=== PATIENT | female | born 1950 | race Caucasian/White ===

== ENCOUNTER 2024-08-23 10:00 | Observation (INO) ==
--- NOTE | 2024-07-26 13:06 | PAT Medication Instructions ---
Medication Instructions Date of Service July 26, 2024 Home Medications aspirin 81 mg tablet,delayed release (Aspir-) 81 mg PO QAM chlorthalidone 25 mg tablet 25 mg PO QAM escitalopram oxalate 20 mg tablet (Lexapro) 20 mg PO QAM esomeprazole magnesium 20 mg capsule,delayed release (Nexium) 40 mg PO QAM eszopiclone 2 mg tablet (Lunesta) 2 mg PO HS levothyroxine 50 mcg tablet 50 mcg PO QAM metoprolol tartrate 25 mg tablet 25 mg PO QAM lisinopril 5 mg tablet (Zestril) 2.5 mg PO QAM Surpass For Horses 1 applic topical BID PRN camphor-menthol 0.2 %-3.5 % topical gel 1 applic topical BID PRN cholecalciferol (vitamin D3) 25 mcg (1,000 unit) capsule (Vitamin D3) 25 mcg PO DAILY escitalopram oxalate 10 mg tablet 10 mg PO QAM gabapentin 100 mg capsule 200 mg PO HS meloxicam 15 mg tablet 15 mg PO DAILY PRN polyethylene glycol 3350 17 gram/dose oral powder (Miralax) 17 g PO DAILY PRN psyllium 1 packet PO DAILY PRN ropinirole 2 mg tablet 2 mg PO HS rosuvastatin 5 mg tablet 5 mg PO QAM tamsulosin 0.4 mg capsule 0.4 mg PO QAM vitamin B12 500 mcg-folic acid 400 mcg tablet 1 tab PO DAILY ASK your surgeon for instructions meloxicam 15 mg tablet 15 mg PO DAILY PRN ASK your prescriber and surgeon aspirin 81 mg tablet,delayed release (Aspir-) 81 mg PO QAM STOP taking 24 hours before surgery Dolores For Horses 1 applic topical BID PRN camphor-menthol 0.2 %-3.5 % topical gel 1 applic topical BID PRN DO NOT take the morning of surgery chlorthalidone 25 mg tablet 25 mg PO QAM lisinopril 5 mg tablet (Zestril) 2.5 mg PO QAM cholecalciferol (vitamin D3) 25 mcg (1,000 unit) capsule (Vitamin D3) 25 mcg PO DAILY polyethylene glycol 3350 17 gram/dose oral powder (Miralax) 17 g PO DAILY PRN psyllium 1 packet PO DAILY PRN vitamin B12 500 mcg-folic acid 400 mcg tablet 1 tab PO DAILY Take morning of surgery With a small sip of water, OTHERWISE NOTHING TO EAT OR DRINK AFTER MIDNIGHT: escitalopram oxalate 20 mg tablet (Lexapro) 20 mg PO QAM esomeprazole magnesium 20 mg capsule,delayed release (Nexium) 40 mg PO QAM levothyroxine 50 mcg tablet 50 mcg PO QAM metoprolol tartrate 25 mg tablet 25 mg PO QAM escitalopram oxalate 10 mg tablet 10 mg PO QAM rosuvastatin 5 mg tablet 5 mg PO QAM tamsulosin 0.4 mg capsule 0.4 mg PO QAM Take evening before surgery eszopiclone 2 mg tablet (Lunesta) 2 mg PO HS gabapentin 100 mg capsule 200 mg PO HS ropinirole 2 mg tablet 2 mg PO HS Other Notes If you have any questions please call us at [phone] or [phone] or [phone] or [phone]
--- NOTE | 2024-08-01 15:06 | Anesthesiology Consultation ---
Date of Service August 01, 2024 Assessment & Plan (1) Encounter for pre-operative examination: - awaiting medical clearance regarding chronic dyspnea and hyponatremia at 129, optimization form to be faxed to Dr. Julissa Orr. Surgeon's office and patient made aware. Chart Review Chart Review: Pending: Refer to Additional Notes / Consult section and Patient seen in Pre Admission Testing Teaching & Discussion Pre-Anesthesia Teaching/Discussion Notes: Instructed NPO after midnight before surgery, except medications with 15 cc of water. Medication instructions provided according to the PAT guidelines. History Surgery Operation Date: 08/23/24 10:40 Proposed Procedures p Right Total Knee Arthroplasty - Andre Lopez MD Height/Weight Height: 5 ft 4 in Weight: 112 kg Allergies Allergy/AdvReac Type Severity Reaction Status Date / Time diclofenac [From Voltaren] Allergy Intermediate Rash, Verified 07/26/24 09:29 Itchiness latex Allergy Intermediate Rash Verified 07/26/24 09:29 Sulfa (Sulfonamide Allergy Intermediate Hives Verified 08/01/24 15:05 Antibiotics) amoxicillin [From Augmentin] AdvReac Intermediate Shakiness/H Verified 07/26/24 09:29 yper Antihistamines - Alkylamine AdvReac Intermediate Insomnia, Verified 07/26/24 09:29 Hyper, Gittery clavulanic acid AdvReac Intermediate Shakiness/H Verified 07/26/24 09:29 [From Augmentin] yper prednisone AdvReac Intermediate Insomnia Verified 07/26/24 09:29 Medications Home Medications Medication Instructions Recorded Confirmed Last Taken aspirin 81 mg tablet,delayed 81 mg PO QAM 04/09/19 07/26/24 05/11/20 release (Aspir-) chlorthalidone 25 mg tablet 25 mg PO QAM Fluid Retention 04/09/19 07/26/24 04/09/19 escitalopram oxalate 20 mg tablet 20 mg PO QAM 04/09/19 07/26/24 05/11/20 (Lexapro) esomeprazole magnesium 20 mg 40 mg PO QAM 04/09/19 07/26/24 05/11/20 capsule,delayed release (Nexium) eszopiclone 2 mg tablet (Lunesta) 2 mg PO HS 04/09/19 07/26/24 05/11/20 levothyroxine 50 mcg tablet 50 mcg PO QAM 04/09/19 07/26/24 05/12/20 07:30 metoprolol tartrate 25 mg tablet 25 mg PO QAM 04/09/19 07/26/24 05/12/20 07:30 lisinopril 5 mg tablet (Zestril) 2.5 mg PO QAM 04/30/20 07/26/24 05/12/20 07:30 Surpass For Horses 1 applic topical BID PRN Pain 07/26/24 07/26/24 Unknown camphor-menthol 0.2 %-3.5 % 1 applic topical BID PRN Pain 07/26/24 07/26/24 Unknown topical gel cholecalciferol (vitamin D3) 25 25 mcg PO DAILY 07/26/24 07/26/24 Unknown mcg (1,000 unit) capsule (Vitamin D3) escitalopram oxalate 10 mg tablet 10 mg PO QAM 07/26/24 07/26/24 Unknown gabapentin 100 mg capsule 200 mg PO HS 07/26/24 07/26/24 Unknown meloxicam 15 mg tablet 15 mg PO DAILY PRN Pain 07/26/24 07/26/24 Unknown polyethylene glycol 3350 17 17 g PO DAILY PRN Constipation 07/26/24 07/26/24 Unknown gram/dose oral powder (Miralax) psyllium 1 packet PO DAILY PRN Constipation 07/26/24 07/26/24 Unknown ropinirole 2 mg tablet 2 mg PO HS 07/26/24 07/26/24 Unknown rosuvastatin 5 mg tablet 5 mg PO QA 07/26/24 07/26/24 Unknown tamsulosin 0.4 mg capsule 0.4 mg PO QA 07/26/24 07/26/24 Unknown vitamin B12 500 mcg-folic acid 400 1 tab PO DAILY 07/26/24 07/26/24 Unknown mcg tablet Past Medical History Medical History Adverse effect of anesthesia Slow to wake - with one colonoscopy Anemia hx - no iron infusion/blood transufsion Colitis hx-x2-last episode more than 4 years ago- no current problems at this time Depression VALIENTE (dyspnea on exertion) chronic-denies change or worsening GERD (gastroesophageal reflux disease) controlled, stable per pt Hx of Lyme disease completed antibiotic tx Hypertension controlled, stable per pt Hypothyroidism Osteoarthritis Peptic ulcer disease in 30's PONV (postoperative nausea and vomiting) denies needing scop patch Prediabetes diet controlled Right knee DJD Sinus infection frequent Urinary leakage Patient denies h/o stroke, seizures, heart attack, heart failure, blood clots/DVTs or blood transfusions. Exercise / Class Metabolic Activity III < 4 Walking/Shop/Light housework (shortness of breath with usual activities ongoing more than 1 year-denies change or worsening; denies chest discomfort) Past Family History Family History Father Colon cancer Mother Liver cancer Past Surgical History Surgical History History of appendectomy History of back surgery x2 - for herniated disc lumbar area/balloon kyphoplasty to lumbar spine History of section x1 History of colonoscopy History of esophagogastroduodenoscopy (EGD) History of hysterectomy History of left cataract extraction History of tonsillectomy Hx of vitrectomy left Past Anesthesia History No Family Hx of Anesthesia Complications and Other (slow to wake) History of PONV History of PONV (with ) and Hx of Motion Sickness Social History Smoking Status: Never smoker Do You Dip or Chew Tobacco: No Hx Alcohol Use: Yes Alcohol type: hard liquor alcohol intake frequency: holidays/special occasions only Hx Substance Use: No substance use type: does not use Review of Systems Snoring, denies witnessed apneas. Patient denies chest pain, fever, chills, cough, wheezing, or palpitations. Physical Exam Vital Signs Vitals BP 126/65 P 58 TEMP 97.5 SP02 96% on RA RESP 18 Physical Patient resting comfortably in chair in no acute distress, alert and oriented, responding appropriately throughout visit Full cervical extension range of motion without pain TMD 3 finger breadths Mallampati Score 3 Dentition: intact, denies chipped or loose teeth, caps/crowns, implants or bridges Lungs: normal respiratory effort. Good air movement, clear throughout to auscultation, no adventitious breath sounds Cardiac: regular rate and rhythm, no murmurs noted Carotid arteries: negative bruit bilat Lab Results Anesthesia Preop Results Results Anesthesia Widget: WBC 7.53 K/ul (4.8-10.8) 08/01/24 Hgb 15.3 g/dl (12.0-16.0) 08/01/24 Hct 43.9 % (37.0-47.0) 08/01/24 Plt 174 K/uL (130-400) 08/01/24 Na 129 mmol/L (136-145) L 08/01/24 K 4.5 mmol/L (3.5-5.1) 08/01/24 Cl 93 mmol/L (98-107) L 08/01/24 CO2 31 mmol/L (21-32) 08/01/24 BUN 19 mg/dl (6-23) 08/01/24 Creat 0.72 mg/dl (0.6-1.2) 08/01/24 Glucose Level 100 mg/dl (70-99(Fasting)) H 08/01/24 PT 11.9 Seconds (9.0-12.0) 08/01/24 PTT 29 Seconds (21-31) 08/01/24 INR 1.1 (0.9-1.1) 08/01/24 Blood Type O Positive 08/01/24 Antibody Screen NEGATIVE 08/01/24 Testing Electrocardiogram Date: 08/01/24 Sinus bradycardia with 1st degree AV block, rate 54 bpm Left axis deviation RBBB Chest X-Ray Date: 08/01/24 No significant abnormality detected.
--- NOTE | 2024-08-19 08:32 | History & Physical Report ---
Date of Service August 19, 2024 Assessment & Plan (1) Right knee DJD: 74-year-old female with a several history of progressive right knee pain discomfort consistent with progressive arthritis. She failed conservative measures. She like to have her knee replaced. Plan: We are going to take her to the operating room do a right total knee replacement. The risks Mente this procedure explained and she understands. Informed consent was obtained. Taylor have to work hard to get rid of her flexion contracture. Will use aspirin for DVT prophylaxis. She is planned to be discharged home is noted home health program. (2) Morbid obesity: History of Present Illness Chief Complaint: . Persistent right knee pain and discomfort. Primary Care Provider: Julissa Orr . The patient is a 74-year-old female from [facility] who presents specifically for surgical treatment of her right knee. She has about a 5 to 6- year history of gradual progressive increasing right knee pain discomfort unresponsive to conservative care. She has been followed and treated by Dr. Harp in [place] initially and then he retired and then by his partner for quite some time. The patient has been through extensive conservative treatment clued oral medicines and injections which have become less successful over time. She now presents hoping for surgical management. Allergies Allergy/AdvReac Type Severity Reaction Status Date / Time diclofenac [From Voltaren] Allergy Intermediate Rash, Verified 07/26/24 09:29 Itchiness latex Allergy Intermediate Rash Verified 07/26/24 09:29 Sulfa (Sulfonamide Allergy Intermediate Hives Verified 08/01/24 15:05 Antibiotics) amoxicillin [From Augmentin] AdvReac Intermediate Shakiness/H Verified 07/26/24 09:29 yper Antihistamines - Alkylamine AdvReac Intermediate Insomnia, Verified 07/26/24 09:29 Hyper, Gittery clavulanic acid AdvReac Intermediate Shakiness/H Verified 07/26/24 09:29 [From Augmentin] yper prednisone AdvReac Intermediate Insomnia Verified 07/26/24 09:29 Home Medications Medication Instructions Recorded Confirmed Type aspirin 81 mg tablet,delayed 81 mg PO QAM 04/09/19 07/26/24 History release (Aspir-) chlorthalidone 25 mg tablet 25 mg PO QAM Fluid Retention 04/09/19 07/26/24 History escitalopram oxalate 20 mg tablet 20 mg PO QAM 04/09/19 07/26/24 History (Lexapro) esomeprazole magnesium 20 mg 40 mg PO QAM 04/09/19 07/26/24 History capsule,delayed release (Nexium) eszopiclone 2 mg tablet (Lunesta) 2 mg PO HS 04/09/19 07/26/24 History levothyroxine 50 mcg tablet 50 mcg PO QAM 04/09/19 07/26/24 History metoprolol tartrate 25 mg tablet 25 mg PO QAM 04/09/19 07/26/24 History lisinopril 5 mg tablet (Zestril) 2.5 mg PO QAM 04/30/20 07/26/24 History Surpass For Horses 1 applic topical BID PRN Pain 07/26/24 07/26/24 History camphor-menthol 0.2 %-3.5 % 1 applic topical BID PRN Pain 07/26/24 07/26/24 History topical gel cholecalciferol (vitamin D3) 25 25 mcg PO DAILY 07/26/24 07/26/24 History mcg (1,000 unit) capsule (Vitamin D3) escitalopram oxalate 10 mg tablet 10 mg PO QAM 07/26/24 07/26/24 History gabapentin 100 mg capsule 200 mg PO HS 07/26/24 07/26/24 History meloxicam 15 mg tablet 15 mg PO DAILY PRN Pain 07/26/24 07/26/24 History polyethylene glycol 3350 17 17 g PO DAILY PRN Constipation 07/26/24 07/26/24 History gram/dose oral powder (Miralax) psyllium 1 packet PO DAILY PRN Constipation 07/26/24 07/26/24 History ropinirole 2 mg tablet 2 mg PO HS 07/26/24 07/26/24 History rosuvastatin 5 mg tablet 5 mg PO QAM 07/26/24 07/26/24 History tamsulosin 0.4 mg capsule 0.4 mg PO QAM 07/26/24 07/26/24 History vitamin B12 500 mcg-folic acid 400 1 tab PO DAILY 07/26/24 07/26/24 History mcg tablet Past Med/Surg History Problem List Right knee DJD Morbid obesity Encounter for pre-operative examination Medical History PONV (postoperative nausea and vomiting) denies needing scop patch Adverse effect of anesthesia Slow to wake - with one colonoscopy Right knee DJD Colitis hx-x2-last episode more than 4 years ago- no current problems at this time Hx of Lyme disease completed antibiotic tx Osteoarthritis Urinary leakage Peptic ulcer disease in 30's GERD (gastroesophageal reflux disease) controlled, stable per pt Prediabetes diet controlled Hypothyroidism Anemia hx - no iron infusion/blood transufsion Sinus infection frequent Depression Hypertension controlled, stable per pt VALIENTE (dyspnea on exertion) chronic-denies change or worsening Surgical History History of left cataract extraction Hx of vitrectomy left History of section x1 History of back surgery x2 - for herniated disc lumbar area/balloon kyphoplasty to lumbar spine History of esophagogastroduodenoscopy (EGD) History of colonoscopy History of appendectomy History of hysterectomy History of tonsillectomy Family History Father Colon cancer Mother Liver cancer Social History Smoking Status: Never smoker Second Hand Exposure: No; Do You Dip or Chew Tobacco: No; Tobacco Cessation Education Requested by Patient: No Hx Alcohol Use: Yes Alcohol type: hard liquor Hx Substance Use: No Preferred Language: Khmer Communication Ability: Effective Zipper Measurer Required: No Beliefs That Will Affect Care: None Current Living Situation: Spouse Other Information That Helps Us Care for You: No Feels Safe at Home: Yes Safety Concerns: Feels Safe At This Time Assistive Devices: Glasses Review of Systems All systems reviewed & are unremarkable except as noted in HPI & below. Physical Exam . Physical examination reveals a pleasant fairly large middle-age female. Examination of the right knee reveal patient walks with the use of a cane. Walks with a bit of a flexed knee gait. Moderate soft tissue envelope. Range of motion about 10 to 15 degrees short of full extension to 115-120 Riese flexion. No particular pain with hip motion. No instability. She is neurologically intact. Constitutional WD/WN, vitals as above Respiratory normal respiratory effort, lungs clear to auscultation Cardiovascular RRR, no murmur, no edema Gastrointestinal (Abdomen) normal bowel sounds, soft, nontender, no hepatosplenomegaly Results & Data Results & Data Laboratory Results . Laboratory results reveal last sodium of 129. Rest of her electrolytes are normal. Diagnostic Findings . X-rays of the right knee reveal moderate to tricompartment DJD. She still has some joint space remaining but clearly osteophytes in all 3 compartments. MRI was also reviewed. She has tricompartment arthritis most severe in the pat ellofemoral compartment. PG Care Time/CCT Total # of Minutes Spent Total Time Spent with Patient: Total time spent is greater than 50% in coordination of care (as documented) at patient's floor/unit and/or counseling patient: Coding Level of Care Code None Diagnoses Right knee DJD M17.11 Morbid obesity E66.01
[~2024-08-23 10:00] MED LIST: BUPIVACAINE 0.5 % 5 MG/1 ML PF 10ML VIAL ONE; ROPIVACAINE 0.5% 5 MG/ML 30 ML VIAL ONE
--- NOTE | 2024-08-23 11:18 | History & Physical Bridge Note ---
Date of Service August 23, 2024 History & Physical Bridge Note I have examined the patient, reviewed the History & Physical and in the interval since the performance of the History & Physical I have noted the following changes of clinical significance: no changes noted
[2024-08-23] MEDS: ACETAMINOPHEN 500 MG TAB PO SCH ×2 (11:23→20:48)
[2024-08-23] MEDS: FAMOTIDINE 20 MG TAB PO SCH (11:23)
[2024-08-23] MEDS: LR 500ML BOLUS, THEN 15ML/HR IV SCH (11:23)
[2024-08-23] MEDS: METOCLOPRAMIDE HCL 10 MG TABLET PO SCH (11:23)
[2024-08-23] MEDS: CeleBREX 200 MG CAP PO SCH (11:24)
[2024-08-23] MEDS: LR 60ML/HR IV SCH (11:26)
[2024-08-23] MEDS ORDERED: MIDAZOLAM HCL 1 MG/ML 2ML VIAL ONE (11:47)
[2024-08-23] MEDS ORDERED: ONDANSETRON INJ 2 MG/ML 2 ML VIAL ONE (11:48)
[2024-08-23] MEDS ORDERED: PROPOFOL IV EMULSION 10 MG/ML 20 ML VIAL IV ONE ×3 (11:48→14:27)
[2024-08-23] MEDS ORDERED: PHENYLEPHRINE 100MCG/ML 5ML SYR ONE (12:08)
--- OUTSIDE RECORDS SUMMARY | 2024-08-23 12:12 | External Medical Summary | Continuity of Care Document ---
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 [phone] Problems Active Problems Provider Date Hypothyroidism Julissa Orr MD, PhD Onset: 09/29/2016 Essential hypertension Julissa Orr MD, PhD Onset: 09/29/2016 Moderate recurrent major depression Julissa dallas MD, PhD Onset: 09/29/2016 Restless legs Julissa Orr MD, PhD Onset: 01/19/2017 Body mass index 40+ - severely obese Julissa fan MD, PhD Onset: 03/25/2017 Morbid obesity Julissa Orr MD, PhD Onset: 03/25/2017 Vitamin D deficiency Julissa Orr MD, PhD On set: 08/26/2017 Hypokalemia Julissa Orr MD, PhD Onset: 12/06/2017 Type 2 diabetes mellitus Julissa Orr MD, Ph D Onset: 08/18/2018 Liver function tests outside reference range Julissa Orr MD, PhD Onset: 08/18/2018 Long QT syndrome Pawan Mckeon MD Onset: 04/29/20 Osteoarthritis of right knee joint uJlissa reynolds MD, PhD Onset: 02/20/2024 Note: Document: 02/14/24 - O rthopaedic Consult Social History Type Date Description Comments Sex Unknown Tobacco Use Reviewed: 08/15/24 Never Smoked Cigarette s Tobacco Use Reviewed: 08/15/24 Never Smoked Cigars Tobacco Use Reviewed: 08/15/24 Never Smoked A Pipe Smoking Status Reviewed: 08/15/24 Never Smoked A Pipe Smokeless Tobacco 08/15/2024 Never Used Smokeless To bacco Allergies and adverse reactions Active Allergies Criticality Reaction | Severity Comments Date Sulfa Antibiotics Unable to assess criticality hives 09/14/2016 Medications Active Medications SIG Qnty Indications Order ing Provider Date Lisinopril2.5mg Tablets take one (1) tablet by mouth every day 90tabs I10 Julissa Orr MD, PhD 03/27/2024 Dgufoyyto72ui Tablets Please take 1 tablet by mouth every day 90tabs M79.661 Lashon Woodson, 01/10/2024 Ropinirole HCL2mg Tablets take one (1) tablet by mouth every day (addition to 0.5mg tablet daily before bedtime) 30tabs G25.81 Julissa Orr MD, PhD 09/13/2023 Zdvusvziuz939oi Capsules 2 by mouth at at bedtime 180caps Julissa Orr MD, PhD 06/03/2023 Gagpiuad40np Tablets 1 tid prn Rosaura Brice 06/03/2023 Bzirvgj4nz Tablets 1 by mouth every day 90tabs Julissa Orr MD, PhD 08/06/2020 Escitalopram Zcqxiam20xg Tablets take one tablet by mouth daily (take with 10mg tablet for a total of 30mg) 90tabs Julissa Orr MD, PhD 08/31/2017 Escitalopram Lzyxkpu42ir Tablets 1 by mouth every day along with 20mg tab (total 30mg) 90tabs Julissa Orr MD, PhD 08/31/2017 Gijbrgyijgmzax43rs Tablets take 1/2 to 1 tablet by mouth once daily 90tabs Julissa Orr MD, PhD 08/26/2017 Levothyroxine Lrjhdc41hac Tablets take 1 & 1/2 tablets by mouth every day 135tabs Julissa Orr MD, PhD 05/18/2017 Metronidazole1% Gel apply to red areas under breast twice daily until healed 60gm IGNACIA Shepherd 03/25/2017 Wbshict0ay Tablets 1 tablet by mouth every night at bedtime 30tabs Julissa Orr MD, PhD 11/02/2016 Metoprolol Kpetboxy36hi Tablets 1 by mouth daily 90tabs Julissa melissa MD, PhD Voltaren1% Gel apply to affected area at night before bed 450gm Julissa Orr MD, PhD Eq Kilzvcgzlk03zb Tablets DR 1 by mouth every day 90tabs Lashon Woodson, DO Gzhhjij41KR/Scoop Powder as directed Unknown Metamucil Free & Kealvue42% Powder daily Unknown Tamsulosin HCL0.4mg Capsules 1 PO daily Aaron Pinto MD Immunizations CPT Code Status Date Vaccine Lot # [id number] Given 03/27/2024 Influenza Vac, Split, Preservative Free High Dose Age 65 & > [id number] 36371 Given 05/10/2023 Influenza Vaccine High Do se 0.5ML Age 65 & > [id number] 56340 Given 04/13/2022 Influenza Vaccine High Do se 0.5ML Age 65 & > [id number] 12108 Given 06/02/2021 Influenza Vaccine High Do se 0.5ML Age 65 & > [id number] 42205 Given 09/26/2020 Moderna Sars-Co v-2 (Cov-19) vacc,100 mcg/ 0.5 mL 12Y+EMR Doc Only [id number] 86557 Given 08/28/2020 Moderna Sars-Co v-2 (Cov-19) vacc,100 mcg/ 0.5 mL 12Y+EMR Doc Only [id number] 22781 Given 07/06/2019 Pneumococcal Vaccine/Pneu movax 23 [id number] 05011 Given 03/06/2019 Influenza Vacci ne, Inactivated, Subunit, Adjuvanted, For Intrmusc [id number] 03153 Given 05/09/2018 Influenza Vac, Split, Preservative Free High Dose Age 65 & > [id number] 80470 Given 05/09/2018 Pneumococcal Conjugate-Pr evnar 13 [id number] 96146 Given 03/25/2017 Influenza Vac, Split, Preservative Free High Dose Age 65 & > [id number] 36093 Refused 03/27/2024 depict Cov-19 Vacc (Ready To Use) EMR Doc Only [id number] Refused 05/10/2023 Shingrix 51636 Refused 04/13/2022 Moderna Sars-Co v-2 (Cov-19) vacc,100 mcg/ 0.5 mL 12Y+EMR Doc Only [id number] Refused 07/06/2019 Tdap (Tetanus, diphtheria & acel. pertussis) Adacel or Boostrix 42136 Refused 03/25/2017 Pneumococcal Vaccine/Pneu movax 23 [id number] Refused 03/25/2017 Tdap (Tetanus, diphtheria & acel. pertussis) Adacel or Boostrix 39563 Refused 03/25/2017 Pneumococcal Conjugate-Pr evnar 13 [id number] Refused 09/29/2016 Influenza Virus Vaccine, Quadrivalent, Im Use Vital Signs Date Vital Result Comment 08/15/2024 9:02am BP Systolic 118 mmHg BP Diastolic 72 mmHg Body Temperature 97.7 F Heart Rate 68 /min Respiratory Rate 20 /min Weight 247.69 lb Weight 112.357 kg Height 63.5 inches 5'3.50" BMI (Body Mass Index) 43.2 kg/m2 [place] Body Weight 115 lb 05/15/2024 10:34am BP Systolic 100 mmHg BP Diastolic 68 mmHg Body Temperature 97.4 F Heart Rate 64 /min Respiratory Rate 20 /min Weight 244.00 lb Weight 110.678 kg Height 63.5 inches 5'3.50" BMI (Body Mass Index) 42.5 kg/m2 [place] Body Weight 115 lb Results Test Acquired Date Facility Test Result H/L Range N ote Comp. Met 03/13/2024 [facility] [address] [place] [address] Glucose 116 mg/dL High 70-110 BUN 20 mg/dL 6-25 Creatinine 0.9 mg/dL 0.5-1.2 Sodium 133 mEq/L Low 135-145 Potassium 3.5 mEq/L 3.5-5.0 Chloride 94 mEq/L Low 95-107 Co-2 23 mEq/L Low 24-31 Alk Phos 55 IU/L 43-122 Alt(SGPT) 30 IU/L 10-40 Ast(Sgot) 39 IU/L 3-42 T.Bilirubin 1.2 mg/dL 0.1-1.3 Calcium 9.6 mg/dL 8.5-10.6 Tot.Protein 7.2 g/dL 5.8-8.0 Albumin 4.3 g/dL 3.0-5.2 Globulin 2.9 g/dL 2.0-3.4 GFR 65 ML/MIN/1.7 3SQM >60 Lipid 03/13/2024 [facility] [address] [place] [address] Cholesterol 110 mg/dL 0-200 1 Triglyceride 81 mg/dL 0-150 2 HDLD 36 mg/dL See Comment 3 Measured LDL 62 mg/dL 0-130 4 Calc VLDL 16.2 mg/dL See Comment 5 Chol/HDL 3.1 RATIO See Comment 6 Non-HDL 74 mg/dL See Comment 7 Hba1c 03/13/2024 [facility] [address] [place] [address] [phone] A1c 6.10 % 4.70-6.50 8 CBC W/Diff 03/13/2024 [facility] [address] [place] [address] WBC 7.0 10^3/M3 3.1-9.2 RBC 5.09 10^6/M3 3.70-5.50 HGB 16.4 GR/DL High 11.5-16.1 HCT 46.9 % 34.5-47.8 MCV 92.3 CUMICR 82.6-95.8 MCH 32.2 PICOGR 27.9-32.9 MCHC 34.9 % 32.6-35.4 RDW 13.6 % 11.4-14.6 PLT 213 10^3/M3 140-350 MPV 8.4 CUMICR 7.0-10.6 %Neut 61.0 % 40.0-75.0 %Lymph 25.9 % 17.0-45.0 %Bibb 10.3 % 1.0-11.0 %Eos 1.9 % 0.0-6.0 %Baso 0.9 % 0.0-2.0 #Neut 4.3 10^3/M3 1.5-8.0 #Lymph 1.8 10^3/M3 0.8-3.2 #Bibb 0.7 10^3/M3 0.0-0.8 #Eos 0.1 10^3/m3 0.0-0.4 #Baso 0.1 10^3/m3 0.0-0.2 Laboratory test finding 03/13/2024 [facility] [address] [facility] [address] [place], [place] [address] [phone] TSH 3.44 uIU/mL 0.50-6.00 FRT4 1.16 ng/dL 0.75-1.54 VB12 >1500 pg/mL High 230-1050 9 1 CHOLESTEROL Less than 200mg/dl Low risk 201-239 mg/dl Borderline risk Equal to or greater 240mg/dl High risk 2 TRIGLYCERIDES Less than 150mg/dl Normal 150-199mg/dl Borderline 200-499mg/dl High Greater than 500mg/dl Very High 3 HDL <40mg/dl Elevated Risk 41-59mg/dl Risk >=60mg/dl Least Risk 4 LDL <100mg/dl Optimal 100-129mg/dl Near Optimal 130-159mg/dl Borderline High 160-189mg/dl High >=190 Very High 5 VLDL Less than 30mg/dl Normal 6 CHOL/HDL <4.0 Optimal 4.0-5.0 Borderline >6.0 High Risk 7 NON-HDL 30mg/dl higher than LDL Target 8 MEAN GLUCOSE IN mg/d L/A1c% POOR CONTROL FAIR CONTROL GOOD CONTROL EXCELLENT CONTROL 360-14 210-9 180-8 120-6 330-13 150-7 90-5 300-12 270-11 240-10 9 B12 COMMENT SERUM B12 LEVELS >1500 MG/DL ARE NOT DILUTED AND REANALYZED. ELEVATED B12 LEVELS ARE NOT CONSIDERED TOXIC. Procedures Date Code Description Status 08/15/2024 79931 Venipuncture Routine Complet ed 05/15/2024 3288F Fall Risk Assessment Documen rosy Completed 05/15/2024 3078F PVRP Diastolic BP <80 mmHg C ompleted 05/15/2024 3074F PVRP Systolic BP <130 mmHg C ompleted 05/15/2024 3044F PVRP HGB-A1c <7.0% Completed 05/15/2024 1100F PT Screened Futu re Fall Risk >/=2 Falls In Past Yr/1 W/Injury Completed 03/27/2024 G0008 Influenza Admin Completed 03/27/2024 3078F PVRP Diastolic BP <80 mmHg C ompleted 03/27/2024 3074F PVRP Systolic BP <130 mmHg C ompleted 03/27/2024 3044F PVRP HGB-A1c <7.0% Completed 03/13/2024 54360 Venipuncture Routine Complet ed 11/28/2023 [id number] Mammogram Completed 12/20/2022 [id number] Colonoscopy Completed 11/27/2019 [id number] Bone Mineral Density Test Co mpleted Medical Devices Description No Information Available Encounters Type Date Location Provider Dx Diagnosis Office Visit 05/15/2024 10:30a Merlin Orr MD, PhD Z00.01 Encounter for general adult medical exam w abnormal findings M76.61 Achilles tendinitis, right leg M25.561 Pain in right knee Office Visit 03/27/2024 10:30a Merlin melissa MD, PhD F33.1 Major depressive disorder, recurrent, moderate E66.01 Morbid (severe) obes ity due to excess calories E03.9 Hypothyroidism, unsp ecified I10 Essential (primary) hypertension E55.9 Vitamin D deficiency , unspecified E11.9 Type 2 diabetes chris itus without complications G25.81 Restless legs syndro me Z23 Encounter for immuni zation Assessments Date Code Description Provider 08/15/2024 Z01.818 Encounter for ot her preprocedural examination Julissa Orr MD, PhD 05/15/2024 Z00.01 Encounter for ge neral adult medical examination with abnormal findings Julissa Orr MD, PhD 05/15/2024 M76.61 Achilles tendinitis, right l eg Julissa Orr MD, PhD 05/15/2024 M25.561 Pain in right knee Julissa rush MD, PhD 03/27/2024 F33.1 Major depressive disorder, recurrent, moderate Julissa Orr MD, PhD 03/27/2024 E66.01 Morbid (severe) obesity due to excess calories Julissa Orr MD, PhD 03/27/2024 E03.9 Hypothyroidism, unspecified Julissa Orr MD, PhD 03/27/2024 I10 Essential (primary) hyperten andres Julissa Orr MD, PhD 03/27/2024 E55.9 Vitamin D deficiency, unspec ified Julissa Orr MD, PhD 03/27/2024 E11.9 Type 2 diabetes mellitus without complications Julissa Orr MD, PhD 03/27/2024 G25.81 Restless legs syndrome Julissa Orr MD, PhD 03/27/2024 Z23 Encounter for immunization M marley Orr MD, PhD 03/13/2024 E11.9 Type 2 diabetes mellitus without complications Julissa Orr MD, PhD 03/13/2024 E11.9 Type 2 diabetes mellitus without complications Lab - [facility] 03/13/2024 E03.9 Hypothyroidism, unspecified Julissa Orr MD, PhD 03/13/2024 E03.9 Hypothyroidism, unspecified Lab - [facility] 03/13/2024 I10 Essential (primary) hyperten andres Julissa Orr MD, PhD 03/13/2024 I10 Essential (primary) hyperten andres Lab - [facility] 03/13/2024 E55.9 Vitamin D deficiency, unspec ified Julissa Orr MD, PhD 03/13/2024 E55.9 Vitamin D deficiency, unspec ified Lab - [facility] Plan of Treatment Future Appointment(s):* 09/18/2024 9:45 am - [facility] * 09/26/2024 10:30 am - Julissa Orr MD, PhD at [facility] 08/15/2024 - Julissa Orr MD, PhD* Z01.818 Encounter for other preprocedural examination* New Labs:* BMP, Scheduled: 08/15/24 Functional Status Description No Information Available Mental Status Description No Information Available Referrals Refer to Dr Reason for Referral Status Appt Michel e Andre Lopez MD Scheduled [facility] [address] [place] [address] [phone]
--- OUTSIDE RECORDS SUMMARY | 2024-08-23 12:12 | External Medical Summary | Continuity of Care Document ---
Author Name Unknown Organization [facility] Address [address], [place] [address] Phone [phone] Care Team Providers Care Canal Boat Operator Name Role Phone [facility] Care Team Information Die Cut Operator [phone] Problems Active Problems Provider Date Hypothyroidism Julissa Orr MD, PhD Onset: 09/29/2016 Essential hypertension Julissa Orr MD, PhD Onset: 09/29/2016 Moderate recurrent major depression Jluissa dallas MD, PhD Onset: 09/29/2016 Restless legs [...] Onset: 04/29/20 Osteoarthritis of right knee joint Julissa reynolds MD, PhD Onset: 02/20/2024 Note: Document: [...] 90tabs I10 Julissa Orr MD, PhD 03/27/2024 Ohqeifsqr38ki Tablets Please take 1 tablet by mouth every day 90tabs M79.661 Lashon Woodson, 01/10/2024 Ropinirole HCL2mg Tablets take one (1) tablet by mouth every day (addition to 0.5mg tablet daily before bedtime) 30tabs G25.81 Julissa Orr MD, PhD 09/13/2023 Gtrhlseuia215th Capsules 2 by mouth at at bedtime 180caps Julissa Orr MD, PhD 06/03/2023 Nsirzhfb97xa Tablets 1 tid prn Rosaura Brice 06/03/2023 Phnobtb9ym Tablets 1 by mouth every day 90tabs Julissa Orr MD, PhD 08/06/2020 Escitalopram Wyefknj08rb Tablets take one tablet by mouth daily (take with 10mg tablet for a total of 30mg) 90tabs Julissa Orr MD, PhD 08/31/2017 Escitalopram Zicbobv44jz Tablets 1 by mouth every day along with 20mg tab (total 30mg) 90tabs Julissa Orr MD, PhD 08/31/2017 Lecleveyeqzeen49hj Tablets take 1/2 to 1 tablet by mouth once daily 90tabs Julissa Orr MD, PhD 08/26/2017 Levothyroxine Ajorys86vnq Tablets take 1 & 1/2 tablets by mouth every day 135tabs Julissa Orr MD, PhD 05/18/2017 Metronidazole1% Gel apply to red areas under breast twice daily until healed 60gm IGNACIA Shepherd 03/25/2017 Aebgzqy6cw Tablets 1 tablet by mouth every night at bedtime 30tabs Julissa Orr MD, PhD 11/02/2016 Metoprolol Csbafglk86ge Tablets 1 by mouth daily 90tabs Julissa melissa MD, PhD Voltaren1% Gel apply to affected area at night before bed 450gm Julissa Orr MD, PhD Eq Dbziwqhwft37vj Tablets DR 1 by mouth every day 90tabs Lashon Woodson, DO Kvnkrld03UI/Scoop Powder as directed Unknown Metamucil Free & Buwtdbg22% Powder daily Unknown Tamsulosin HCL0.4mg Capsules 1 PO daily Aaron Pinto MD Immunizations CPT Code Status Date Vaccine Lot # [id number] Given 03/27/2024 Influenza Vac, Split, Preservative Free High Dose Age 65 & > [id number] 61464 Given 05/10/2023 Influenza Vaccine High Do se 0.5ML Age 65 & > [id number] 38681 Given 04/13/2022 Influenza Vaccine High Do se 0.5ML Age 65 & > [id number] 46445 Given 06/02/2021 Influenza Vaccine High Do se 0.5ML Age 65 & > [id number] 05631 Given 09/26/2020 Moderna Sars-Co v-2 (Cov-19) vacc,100 mcg/ 0.5 mL 12Y+EMR Doc Only [id number] 36768 Given 08/28/2020 Moderna Sars-Co v-2 (Cov-19) vacc,100 mcg/ 0.5 mL 12Y+EMR Doc Only [id number] 36291 Given 07/06/2019 Pneumococcal Vaccine/Pneu movax 23 [id number] 10665 Given 03/06/2019 Influenza Vacci ne, Inactivated, Subunit, Adjuvanted, For Intrmusc [id number] 69884 Given 05/09/2018 Influenza Vac, Split, Preservative Free High Dose Age 65 & > [id number] 97756 Given 05/09/2018 Pneumococcal Conjugate-Pr evnar 13 [id number] 94593 Given 03/25/2017 Influenza Vac, Split, Preservative Free High Dose Age 65 & > [id number] 41101 Refused 03/27/2024 Tamion Cov-19 Vacc (Ready To Use) EMR Doc Only [id number] Refused 05/10/2023 Shingrix 41641 Refused 04/13/2022 Moderna Sars-Co v-2 (Cov-19) vacc,100 mcg/ 0.5 mL 12Y+EMR Doc Only [id number] Refused 07/06/2019 Tdap (Tetanus, diphtheria & acel. pertussis) Adacel or Boostrix 91889 Refused 03/25/2017 Pneumococcal Vaccine/Pneu movax 23 53669 Refused 03/25/2017 Tdap (Tetanus, diphtheria & acel. pertussis) Adacel or Boostrix 28859 Refused 03/25/2017 Pneumococcal Conjugate-Pr evnar 13 [id number] Refused 09/29/2016 Influenza Virus Vaccine, Quadrivalent, Im Use Vital Signs Date Vital Result Comment 08/15/2024 9:02am BP Systolic 118 mmHg BP Diastolic 72 mmHg Body Temperature 97.7 F Heart Rate 68 /min Respiratory Rate 20 /min Weight 247.69 lb Weight 112.357 kg Height 63.5 inches 5'3.50" BMI (Body Mass Index) 43.2 kg/m2 [place] Body Weight 115 lb 05/15/2024 10:34am BP Systolic 100 mmHg BP Diastolic 68 mmHg Body Temperature 97.4 F Heart Rate 64 /min Respiratory Rate 20 /min Weight 244.00 lb Weight 110.678 kg Height 63.5 inches 5'3.50" BMI (Body Mass Index) 42.5 kg/m2 [place] Body Weight 115 lb Results Test Acquired Date Facility Test Result H/L Range N ote BMP 08/15/2024 [facility] [address] [place], [place] [id number] Glucose 98 mg/dL 70-110 BUN 20 mg/dL 6-25 Creatinine 0.8 mg/dL 0.5-1.2 Sodium 135 mEq/L 135-145 Potassium 3.7 mEq/L 3.5-5.0 Chloride 98 mEq/L 95-107 Co-2 26 mEq/L 24-31 Calcium 10.3 mg/dL 8.5-10.6 GFR 75 ML/MIN/1.7 3SQM >60 Comp. Met 03/13/2024 [facility] [address] [place], [place] [address] Glucose 116 mg/dL High 70-110 BUN 20 [...] GFR 65 ML/MIN/1.7 3SQM >60 Lipid 03/13/2024 [facility] [address] [place] [address] [phone] Cholesterol 110 mg/dL 0-200 1 Triglyceride 81 mg/dL 0-150 2 HDLD 36 mg/dL See Comment 3 Measured LDL 62 mg/dL 0-130 4 Calc VLDL 16.2 mg/dL See Comment 5 Chol/HDL 3.1 RATIO See Comment 6 Non-HDL 74 mg/dL See Comment 7 Hba1c 03/13/2024 [facility] [address] [place], [place] [address] [phone] A1c 6.10 % 4.70-6.50 8 CBC W/Diff 03/13/2024 [facility] [address] [place] [address] [phone] WBC 7.0 10^3/M3 3.1-9.2 RBC 5.09 10^6/M3 3.70-5.50 HGB 16.4 GR/DL High 11.5-16.1 HCT 46.9 % 34.5-47.8 MCV 92.3 CUMICR 82.6-95.8 MCH 32.2 PICOGR 27.9-32.9 MCHC 34.9 % 32.6-35.4 RDW 13.6 % 11.4-14.6 PLT 213 10^3/M3 140-350 MPV 8.4 CUMICR 7.0-10.6 %Neut 61.0 % 40.0-75.0 %Lymph 25.9 % 17.0-45.0 %[place] 10.3 % 1.0-11.0 %Eos 1.9 % 0.0-6.0 %Baso 0.9 % 0.0-2.0 #Neut 4.3 10^3/M3 1.5-8.0 #Lymph 1.8 10^3/M3 0.8-3.2 #[place] 0.7 10^3/M3 0.0-0.8 #Eos 0.1 10^3/m3 0.0-0.4 #Baso 0.1 10^3/m3 0.0-0.2 Laboratory test finding 03/13/2024 [facility] [address] [place] [address] TSH 3.44 uIU/mL 0.50-6.00 FRT4 1.16 ng/dL [...] TOXIC. Procedures Date Code Description Status 08/15/2024 01830 Venipuncture Routine Complet ed 05/15/2024 0438F Fall Risk Assessment Documen rosy Completed 05/15/2024 [...] 03/27/2024 3044F PVRP HGB-A1c <7.0% Completed 03/13/2024 87262 Venipuncture Routine Complet ed 11/28/2023 [id number] Mammogram Completed 12/20/2022 [id number] Colonoscopy Completed 11/27/2019 [id number] Bone Mineral Density Test Co mpleted Medical Devices Description No Information Available Encounters Type Date Location Provider Dx Diagnosis Office Visit 08/15/2024 9:00a Merlin Orr MD, PhD Z01.818 Encounter for other preprocedural examination Office Visit 05/15/2024 10:30a Merlin Orr MD, [...] 2 diabetes mellitus without complications Lab - [facility] 03/13/2024 E03.9 Hypothyroidism, unspecified Julissa Orr MD, PhD 03/13/2024 E03.9 Hypothyroidism, unspecified Lab - [facility] 03/13/2024 I10 Essential (primary) hyperten andres Julissa Orr MD, PhD 03/13/2024 I10 Essential (primary) hyperten andres Lab - [facility] 03/13/2024 E55.9 Vitamin D deficiency, unspec ified Julissa Orr MD, PhD 03/13/2024 E55.9 Vitamin D deficiency, unspec ified Lab - [facility] Plan of Treatment Future Appointment(s):* 09/18/2024 9:45 am - [facility] - [facility] * 09/26/2024 10:30 am - Julissa Orr MD, PhD at [facility] 08/15/2024 - Julissa Orr MD, PhD* Z01.818 Encounter for other preprocedural examination* Comments:* Medically optimized for surgery. EKG is unchanged for several years Has overall deconditioning but no VALIENTE or SOB Functional Status Description No Information Available Mental Status Description No Information Available Referrals Refer to Reason for Referral Status Appt Andre Zaldivar MD Closed [facility] [address] [place] [address] [phone]
--- OUTSIDE RECORDS SUMMARY | 2024-08-23 12:12 | External Medical Summary | Continuity of Care Document ---
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 [phone] Problems Active Problems Provider Date Hypothyroidism Julissa [...] 90tabs I10 Julissa Orr MD, PhD 03/27/2024 Ltwbfamla96xy Tablets Please take 1 tablet by mouth every day 90tabs M79.661 Lashon Woodson, 01/10/2024 Ropinirole HCL2mg Tablets take one (1) tablet by mouth every day (addition to 0.5mg tablet daily before bedtime) 30tabs G25.81 Julissa Orr MD, PhD 09/13/2023 Qeaerndepw751zg Capsules 2 by mouth at at bedtime 180caps Julissa Orr MD, PhD 06/03/2023 Raudztsz96gz Tablets 1 tid prn Rosaura Brice 06/03/2023 Eekxydz1fn Tablets 1 by mouth every day 90tabs Julissa Orr MD, PhD 08/06/2020 Escitalopram Rawhjtm72my Tablets take one tablet by mouth daily (take with 10mg tablet for a total of 30mg) 90tabs Julissa Orr MD, PhD 08/31/2017 Escitalopram Zxfmbxo60qp Tablets 1 by mouth every day along with 20mg tab (total 30mg) 90tabs Julissa Orr MD, PhD 08/31/2017 Xuvqlugrktutso69tl Tablets take 1/2 to 1 tablet by mouth once daily 90tabs Julissa Orr MD, PhD 08/26/2017 Levothyroxine Guyoqc92wkx Tablets take 1 & 1/2 tablets by mouth every day 135tabs Julissa Orr MD, PhD 05/18/2017 Metronidazole1% Gel apply to red areas under breast twice daily until healed 60gm IGNACIA Shepherd 03/25/2017 Vnavcym0tj Tablets 1 tablet by mouth every night at bedtime 30tabs Julissa Orr MD, PhD 11/02/2016 Metoprolol Fjlophnk77vz Tablets 1 by mouth daily 90tabs Julissa melissa MD, PhD Voltaren1% Gel apply to affected area at night before bed 450gm Julissa Orr MD, PhD Eq Itpwfwzams47ef Tablets DR 1 by mouth every day 90tabs Lashon Woodson, DO Wynfbnb19GJ/Scoop Powder as directed Unknown Metamucil Free & Hbqdtde72% Powder daily Unknown Tamsulosin HCL0.4mg Capsules 1 PO daily Aaron Pinot MD Immunizations CPT Code Status Date Vaccine Lot # [id number] Given 03/27/2024 Influenza Vac, Split, Preservative Free High Dose Age 65 & > [id number] Given 05/10/2023 Influenza Vaccine High Do se 0.5ML Age 65 & > [id number] 36133 Given 04/13/2022 Influenza Vaccine High Do se 0.5ML Age 65 & > [id number] 69164 Given 06/02/2021 Influenza Vaccine High Do se 0.5ML Age 65 & > [id number] 78177 Given 09/26/2020 Moderna Sars-Co v-2 (Cov-19) vacc,100 mcg/ 0.5 mL 12Y+EMR Doc Only [id number] 25926 Given 08/28/2020 Moderna Sars-Co v-2 (Cov-19) vacc,100 mcg/ 0.5 mL 12Y+EMR Doc Only [id number] 29240 Given 07/06/2019 Pneumococcal Vaccine/Pneu movax 23 [id number] 10628 Given 03/06/2019 Influenza Vacci ne, Inactivated, Subunit, Adjuvanted, For Intrmusc [id number] 91989 Given 05/09/2018 Influenza Vac, Split, Preservative Free High Dose Age 65 & > [id number] 09521 Given 05/09/2018 Pneumococcal Conjugate-Pr evnar 13 [id number] 50919 Given 03/25/2017 Influenza Vac, Split, Preservative Free High Dose Age 65 & > [id number] Refused 03/27/2024 Essential Viewing Cov-19 Vacc (Ready To Use) EMR Doc Only [id number] Refused 05/10/2023 Shingrix 74772 Refused 04/13/2022 Moderna Sars-Co v-2 (Cov-19) vacc,100 mcg/ 0.5 mL 12Y+EMR Doc Only [id number] Refused 07/06/2019 Tdap (Tetanus, diphtheria & acel. pertussis) Adacel or Boostrix 37433 Refused 03/25/2017 Pneumococcal Vaccine/Pneu movax 23 05707 Refused 03/25/2017 Tdap (Tetanus, diphtheria & acel. pertussis) Adacel or Boostrix 31126 Refused 03/25/2017 Pneumococcal Conjugate-Pr evnar 13 24898 Refused 09/29/2016 Influenza Virus Vaccine, Quadrivalent, Im Use Vital Signs Date Vital Result Comment 08/15/2024 9:02am BP Systolic 118 mmHg BP Diastolic 72 mmHg Body Temperature 97.7 F Heart Rate 68 /min Respiratory Rate 20 /min Weight 247.69 lb Weight 112.357 kg Height 63.5 inches 5'3.50" BMI (Body Mass Index) 43.2 kg/m2 [place] Body Weight 115 lb 05/15/2024 10:34am BP Systolic 100 mmHg BP Diastolic 68 mmHg Body Temperature 97.4 F Heart Rate 64 /min Respiratory Rate 20 /min Weight 244.00 lb Weight 110.678 kg Height 63.5 inches 5'3.50" BMI (Body Mass Index) 42.5 kg/m2 [place] Body Weight 115 lb Results Test Acquired Date Facility Test Result H/L Range N ote Comp. Met 03/13/2024 [facility]. [address] [place] [address] [phone] Glucose 116 mg/dL High 70-110 BUN 20 [...] GFR 65 ML/MIN/1.7 3SQM >60 Lipid 03/13/2024 [facility]. [address] [place] [address] [phone] Cholesterol 110 mg/dL 0-200 1 Triglyceride 81 mg/dL 0-150 2 HDLD 36 mg/dL See Comment 3 Measured LDL 62 mg/dL 0-130 4 Calc VLDL 16.2 mg/dL See Comment 5 Chol/HDL 3.1 RATIO See Comment 6 Non-HDL 74 mg/dL See Comment 7 Hba1c 03/13/2024 [facility]. [address] [place] [address] A1c 6.10 % 4.70-6.50 8 CBC W/Diff 03/13/2024 [facility]. [address] [place] [address] [phone] WBC 7.0 10^3/M3 3.1-9.2 RBC 5.09 10^6/M3 3.70-5.50 HGB 16.4 GR/DL High 11.5-16.1 HCT 46.9 % 34.5-47.8 MCV 92.3 CUMICR 82.6-95.8 MCH 32.2 PICOGR 27.9-32.9 MCHC 34.9 % 32.6-35.4 RDW 13.6 % 11.4-14.6 PLT 213 10^3/M3 140-350 MPV 8.4 CUMICR 7.0-10.6 %Neut 61.0 % 40.0-75.0 %Lymph 25.9 % 17.0-45.0 %[facility] 10.3 % 1.0-11.0 %Eos 1.9 % 0.0-6.0 %Baso 0.9 % 0.0-2.0 #Neut 4.3 10^3/M3 1.5-8.0 #Lymph 1.8 10^3/M3 0.8-3.2 #[facility] 0.7 10^3/M3 0.0-0.8 #Eos 0.1 10^3/m3 0.0-0.4 #[place] 0.1 10^3/m3 0.0-0.2 Laboratory test finding 03/13/2024 [facility]. [address] [place], [place] [id number] TSH 3.44 uIU/mL 0.50-6.00 FRT4 1.16 ng/dL [...] TOXIC. Procedures Date Code Description Status 08/15/2024 61092 Venipuncture Routine Complet ed 05/15/2024 3288F Fall [...] 03/27/2024 3044F PVRP HGB-A1c <7.0% Completed 03/13/2024 78817 Venipuncture Routine Complet ed 11/28/2023 [id number] Mammogram Completed 12/20/2022 [id number] Colonoscopy Completed 11/27/2019 [id number] Bone Mineral Density Test Co mpleted Medical [...] 2 diabetes mellitus without complications Lab - [place] 03/13/2024 E03.9 Hypothyroidism, unspecified Julissa Orr MD, PhD 03/13/2024 E03.9 Hypothyroidism, unspecified Lab - [place] 03/13/2024 I10 Essential (primary) hyperten andres Julissa Orr MD, PhD 03/13/2024 I10 Essential (primary) hyperten andres Lab - [place] 03/13/2024 E55.9 Vitamin D deficiency, unspec ified Julissa Orr MD, PhD 03/13/2024 E55.9 Vitamin D deficiency, unspec ified Lab - [place] Plan of Treatment Future Appointment(s):* 09/18/2024 9:45 am - [facility] [place] [facility] [place] * 09/26/2024 10:30 am - Julissa Orr MD, PhD at [place] 08/15/2024 - Julissa Orr MD, PhD* Z01.818 Encounter for other preprocedural examination* New Labs:* BMP, Scheduled: 08/15/24 Functional Status Description No Information Available Mental Status Description No Information Available Referrals Refer to Dr Reason for Referral Status Appt Michel e Andre Lopez MD Scheduled [facility] [address] [place] [address] [phone]
--- OUTSIDE RECORDS SUMMARY | 2024-08-23 12:12 | External Medical Summary | Continuity of Care Document ---
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 [phone] Problems Active Problems Provider Date Hypothyroidism Julissa [...] QT syndrome Pawan Mckeon MD Onset: 04/29/20 20 Osteoarthritis of right knee joint Julissa reynolds [...] 90tabs I10 Julissa Orr MD, PhD 03/27/2024 Tmsezmeqx81jp Tablets Please take 1 tablet by mouth every day 90tabs M79.661 Lashon Woodson, 01/10/2024 Ropinirole HCL2mg Tablets take one (1) tablet by mouth every day (addition to 0.5mg tablet daily before bedtime) 30tabs G25.81 Julissa Orr MD, PhD 09/13/2023 Wvregwcykt616gx Capsules 2 by mouth at at bedtime 180caps Julissa Orr MD, PhD 06/03/2023 Fxvrgyui45lq Tablets 1 tid prn Rosaura Brice 06/03/2023 Sffditg4wm Tablets 1 by mouth every day 90tabs Julissa Orr MD, PhD 08/06/2020 Escitalopram Qgnkjtc62yd Tablets take one tablet by mouth daily (take with 10mg tablet for a total of 30mg) 90tabs Julissa Orr MD, PhD 08/31/2017 Escitalopram Xwrunze58hh Tablets 1 by mouth every day along with 20mg tab (total 30mg) 90tabs Julissa Orr MD, PhD 08/31/2017 Jfnmrulffiekof38ey Tablets take 1/2 to 1 tablet by mouth once daily 90tabs Julissa Orr MD, PhD 08/26/2017 Levothyroxine Hbkooq32bbj Tablets take 1 & 1/2 tablets by mouth every day 135tabs Julissa Orr MD, PhD 05/18/2017 Metronidazole1% Gel apply to red areas under breast twice daily until healed 60gm IGNACIA Shepherd 03/25/2017 Fotylah0dh Tablets 1 tablet by mouth every night at bedtime 30tabs Julissa Orr MD, PhD 11/02/2016 Metoprolol Dhminaic89lh Tablets 1 by mouth daily 90tabs Julissa melissa MD, PhD Voltaren1% Gel apply to affected area at night before bed 450gm Julissa Orr MD, PhD Eq Ctxsmaonzf90rr Tablets DR 1 by mouth every day 90tabs Lashon Woodson, DO Gutfsph11OH/Scoop Powder as directed Unknown Metamucil Free & Wywbhln63% Powder daily Unknown Tamsulosin HCL0.4mg Capsules 1 PO daily Aaron Pinto MD Immunizations CPT Code Status Date Vaccine Lot # [id number] Given 03/27/2024 Influenza Vac, Split, Preservative Free High Dose Age 65 & > [id number] 61048 Given 05/10/2023 Influenza Vaccine High Do se 0.5ML Age 65 & > [id number] 62813 Given 04/13/2022 Influenza Vaccine High Do se 0.5ML Age 65 & > [id number] 49455 Given 06/02/2021 Influenza Vaccine High Do se 0.5ML Age 65 & > [id number] 55156 Given 09/26/2020 Moderna Sars-Co v-2 (Cov-19) vacc,100 mcg/ 0.5 mL 12Y+EMR Doc Only [id number] 56108 Given 08/28/2020 Moderna Sars-Co v-2 (Cov-19) vacc,100 mcg/ 0.5 mL 12Y+EMR Doc Only [id number] 50018 Given 07/06/2019 Pneumococcal Vaccine/Pneu movax 23 [id number] 53092 Given 03/06/2019 Influenza Vacci ne, Inactivated, Subunit, Adjuvanted, For Intrmusc [id number] 28518 Given 05/09/2018 Influenza Vac, Split, Preservative Free High Dose Age 65 & > [id number] 70285 Given 05/09/2018 Pneumococcal Conjugate-Pr evnar 13 [id number] 91951 Given 03/25/2017 Influenza Vac, Split, Preservative Free High Dose Age 65 & > [id number] 52153 Refused 03/27/2024 SnapUp Cov-19 Vacc (Ready To Use) EMR Doc Only 31703 Refused 05/10/2023 Shingrix 87475 Refused 04/13/2022 Moderna Sars-Co v-2 (Cov-19) vacc,100 mcg/ 0.5 mL 12Y+EMR Doc Only 70460 Refused 07/06/2019 Tdap (Tetanus, diphtheria & acel. pertussis) Adacel or Boostrix 60953 Refused 03/25/2017 Pneumococcal Vaccine/Pneu movax 23 15512 Refused 03/25/2017 Tdap (Tetanus, diphtheria & acel. pertussis) Adacel or Boostrix 41920 Refused 03/25/2017 Pneumococcal Conjugate-Pr evnar 13 53331 Refused 09/29/2016 Influenza Virus Vaccine, Quadrivalent, Im Use Vital Signs Date Vital Result Comment 08/15/2024 9:02am BP Systolic 118 mmHg BP Diastolic 72 mmHg Body Temperature 97.7 F Heart Rate 68 /min Respiratory Rate 20 /min Weight 247.69 lb Weight 112.357 kg Height 63.5 inches 5'3.50" BMI (Body Mass Index) 43.2 kg/m2 [place] Body Weight 115 lb 05/15/2024 10:34am BP Systolic 100 mmHg BP Diastolic 68 mmHg Body Temperature 97.4 F Heart Rate 64 /min Respiratory Rate 20 /min Weight 244.00 lb Weight 110.678 kg Height 63.5 inches 5'3.50" BMI (Body Mass Index) 42.5 kg/m2 [place] Body Weight 115 lb Results Test Acquired Date Facility Test Result H/L Range N ote BMP 08/15/2024 [facility]. 1 [place], [place] [id number] [phone] Glucose 98 mg/dL 70-110 BUN 20 mg/dL 6-25 Creatinine 0.8 mg/dL 0.5-1.2 Sodium 135 mEq/L 135-145 Potassium 3.7 mEq/L 3.5-5.0 Chloride 98 mEq/L 95-107 Co-2 26 mEq/L 24-31 Calcium 10.3 mg/dL 8.5-10.6 GFR 75 ML/MIN/1.7 3SQM >60 Comp. Met 03/13/2024 [facility]. 1 [place], [place] [address] [phone] Glucose 116 mg/dL High 70-110 BUN [...] GFR 65 ML/MIN/1.7 3SQM >60 Lipid 03/13/2024 [facility]. 1 [place] [address] Cholesterol 110 mg/dL 0-200 1 Triglyceride 81 mg/dL 0-150 2 HDLD 36 mg/dL See Comment 3 Measured LDL 62 mg/dL 0-130 4 Calc VLDL 16.2 mg/dL See Comment 5 Chol/HDL 3.1 RATIO See Comment 6 Non-HDL 74 mg/dL See Comment 7 Hba1c 03/13/2024 [facility]. 1 [place], [place] [address] A1c 6.10 % 4.70-6.50 8 CBC W/Diff 03/13/2024 [facility]. [address] [place] [address] WBC 7.0 10^3/M3 3.1-9.2 RBC 5.09 10^6/M3 3.70-5.50 HGB 16.4 GR/DL High 11.5-16.1 HCT 46.9 % 34.5-47.8 MCV 92.3 CUMICR 82.6-95.8 MCH 32.2 PICOGR 27.9-32.9 MCHC 34.9 % 32.6-35.4 RDW 13.6 % 11.4-14.6 PLT 213 10^3/M3 140-350 MPV 8.4 CUMICR 7.0-10.6 %Neut 61.0 % 40.0-75.0 %Lymph 25.9 % 17.0-45.0 %[place] 10.3 % 1.0-11.0 %Eos 1.9 % 0.0-6.0 %Baso 0.9 % 0.0-2.0 #Neut 4.3 10^3/M3 1.5-8.0 #Lymph 1.8 10^3/M3 0.8-3.2 #[place] 0.7 10^3/M3 0.0-0.8 #Eos 0.1 10^3/m3 0.0-0.4 #Baso 0.1 10^3/m3 0.0-0.2 Laboratory test finding 03/13/2024 [facility]. [address] [place] [address] TSH 3.44 uIU/mL 0.50-6.00 FRT4 1.16 ng/dL [...] TOXIC. Procedures Date Code Description Status 08/15/2024 81258 Venipuncture Routine Complet ed 05/15/2024 4498F Fall Risk Assessment Documen rosy Completed 05/15/2024 [...] 03/27/2024 3044F PVRP HGB-A1c <7.0% Completed 03/13/2024 83184 Venipuncture Routine Complet ed 11/28/2023 [id number] Mammogram Completed 12/20/2022 [id number] Colonoscopy Completed 11/27/2019 [id number] Bone Mineral Density Test Co mpleted Medical [...] Orr MD, PhD 03/27/2024 Z23 Encounter for favio Orr MD, PhD 03/13/2024 E11.9 Type 2 diabetes mellitus without complications Julissa Orr MD, PhD 03/13/2024 E11.9 Type 2 diabetes mellitus without complications Lab - [place] 03/13/2024 E03.9 Hypothyroidism, unspecified Julissa Orr MD, PhD 03/13/2024 E03.9 Hypothyroidism, unspecified Lab - [place] 03/13/2024 I10 Essential (primary) hyperten andres Julissa Orr MD, PhD 03/13/2024 I10 Essential (primary) hyperten andres Lab - [place] 03/13/2024 E55.9 Vitamin D deficiency, unspec ified Julissa Orr MD, PhD 03/13/2024 E55.9 Vitamin D deficiency, unspec ified Lab - [place] Plan of Treatment Future Appointment(s):* 09/18/2024 9:45 am - Lab - [place] [facility] [place] * 09/26/2024 10:30 am - Julissa Orr MD, PhD at [place] 08/15/2024 - Julissa Orr MD, PhD* Z01.818 Encounter for other preprocedural examination Functional Status Description No Information Available Mental Status Description No Information Available Referrals Refer to Reason for Referral Status Appt Michel e Andre Lopez MD Scheduled [facility] [address] [place] [address] [phone]
--- OUTSIDE RECORDS SUMMARY | 2024-08-23 12:12 | External Medical Summary | Continuity of Care Document ---
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 [phone] Problems Active Problems Provider Date Hypothyroidism Julissa [...] 90tabs I10 Julissa Orr MD, PhD 03/27/2024 Uiqffgdck18qk Tablets Please take 1 tablet by mouth every day 90tabs M79.661 Lashon Woodson, 01/10/2024 Ropinirole HCL2mg Tablets take one (1) tablet by mouth every day (addition to 0.5mg tablet daily before bedtime) 30tabs G25.81 Julissa Orr MD, PhD 09/13/2023 Kgtekdhgko851jz Capsules 2 by mouth at at bedtime 180caps Julissa Orr MD, PhD 06/03/2023 Lurepaam85pv Tablets 1 tid prn Rosaura Brice 06/03/2023 Kgobutc8rb Tablets 1 by mouth every day 90tabs Julissa Orr MD, PhD 08/06/2020 Escitalopram Kjnqwmz28in Tablets take one tablet by mouth daily (take with 10mg tablet for a total of 30mg) 90tabs Julissa Orr MD, PhD 08/31/2017 Escitalopram Qnmlcaz06am Tablets 1 by mouth every day along with 20mg tab (total 30mg) 90tabs Julissa Orr MD, PhD 08/31/2017 Fhcvubfwrsowfw61ha Tablets take 1/2 to 1 tablet by mouth once daily 90tabs Julissa Orr MD, PhD 08/26/2017 Levothyroxine Puovco22mqj Tablets take 1 & 1/2 tablets by mouth every day 135tabs Julissa Orr MD, PhD 05/18/2017 Metronidazole1% Gel apply to red areas under breast twice daily until healed 60gm IGNACIA Shepherd 03/25/2017 Mzzyfqr1ae Tablets 1 tablet by mouth every night at bedtime 30tabs Julissa Orr MD, PhD 11/02/2016 Metoprolol Vmbbtwat98eb Tablets 1 by mouth daily 90tabs Julissa melissa MD, PhD Voltaren1% Gel apply to affected area at night before bed 450gm Julissa Orr MD, PhD Eq Rqbjpfvmjr95sd Tablets DR 1 by mouth every day 90tabs Lashon Woodson, DO Crswcpo65UM/Scoop Powder as directed Unknown Metamucil Free & Gxahbtr30% Powder daily Unknown Tamsulosin HCL0.4mg Capsules 1 PO daily Aaron Pinto MD Immunizations CPT Code Status Date Vaccine Lot # [id number] Given 03/27/2024 Influenza Vac, Split, Preservative Free High Dose Age 65 & > [id number] 29322 Given 05/10/2023 Influenza Vaccine High Do se 0.5ML Age 65 & > [id number] 68879 Given 04/13/2022 Influenza Vaccine High Do se 0.5ML Age 65 & > [id number] 98490 Given 06/02/2021 Influenza Vaccine High Do se 0.5ML Age 65 & > [id number] 78789 Given 09/26/2020 Moderna Sars-Co v-2 (Cov-19) vacc,100 mcg/ 0.5 mL 12Y+EMR Doc Only [id number] 55655 Given 08/28/2020 Moderna Sars-Co v-2 (Cov-19) vacc,100 mcg/ 0.5 mL 12Y+EMR Doc Only [id number] 15105 Given 07/06/2019 Pneumococcal Vaccine/Pneu movax 23 [id number] 36234 Given 03/06/2019 Influenza Vacci ne, Inactivated, Subunit, Adjuvanted, For Intrmusc [id number] 53798 Given 05/09/2018 Influenza Vac, Split, Preservative Free High Dose Age 65 & > [id number] 39972 Given 05/09/2018 Pneumococcal Conjugate-Pr evnar 13 [id number] 13921 Given 03/25/2017 Influenza Vac, Split, Preservative Free High Dose Age 65 & > [id number] 32417 Refused 03/27/2024 ExpoPromoter Cov-19 Vacc (Ready To Use) EMR Doc Only [id number] Refused 05/10/2023 Shingrix 53737 Refused 04/13/2022 Moderna Sars-Co v-2 (Cov-19) vacc,100 mcg/ 0.5 mL 12Y+EMR Doc Only [id number] Refused 07/06/2019 Tdap (Tetanus, diphtheria & acel. pertussis) Adacel or Boostrix 33268 Refused 03/25/2017 Pneumococcal Vaccine/Pneu movax 23 [id number] Refused 03/25/2017 Tdap (Tetanus, diphtheria & acel. pertussis) Adacel or Boostrix 66381 Refused 03/25/2017 Pneumococcal Conjugate-Pr evnar 13 14642 Refused 09/29/2016 Influenza Virus Vaccine, Quadrivalent, Im Use Vital Signs Date Vital Result Comment 08/15/2024 9:02am BP Systolic 118 mmHg BP Diastolic 72 mmHg Body Temperature 97.7 F Heart Rate 68 /min Respiratory Rate 20 /min Weight 247.69 lb Weight 112.357 kg Height 63.5 inches 5'3.50" BMI (Body Mass Index) 43.2 kg/m2 [place] Body Weight 115 lb 05/15/2024 10:34am BP Systolic 100 mmHg BP Diastolic 68 mmHg Body Temperature 97.4 F Heart Rate 64 /min Respiratory Rate 20 /min Weight 244.00 lb Weight 110.678 kg Height 63.5 inches 5'3.50" BMI (Body Mass Index) 42.5 kg/m2 [place] Body Weight 115 lb Results Test Acquired Date Facility Test Result H/L Range N ote Comp. Met 03/13/2024 [facility]. [address] [place] [address] [phone] Glucose 116 mg/dL High 70-110 BUN [...] GFR 65 ML/MIN/1.7 3SQM >60 Lipid 03/13/2024 [facility]. [address] [place] [address] [phone] Cholesterol 110 mg/dL 0-200 1 Triglyceride 81 mg/dL 0-150 2 HDLD 36 mg/dL See Comment 3 Measured LDL 62 mg/dL 0-130 4 Calc VLDL 16.2 mg/dL See Comment 5 Chol/HDL 3.1 RATIO See Comment 6 Non-HDL 74 mg/dL See Comment 7 Hba1c 03/13/2024 [facility]. [address] [place] [address] A1c 6.10 % 4.70-6.50 8 CBC W/Diff 03/13/2024 [facility]. [address] [place] [address] [phone] WBC 7.0 10^3/M3 3.1-9.2 RBC 5.09 10^6/M3 3.70-5.50 HGB 16.4 GR/DL High 11.5-16.1 HCT 46.9 % 34.5-47.8 MCV 92.3 CUMICR 82.6-95.8 MCH 32.2 PICOGR 27.9-32.9 MCHC 34.9 % 32.6-35.4 RDW 13.6 % 11.4-14.6 PLT 213 10^3/M3 140-350 MPV 8.4 CUMICR 7.0-10.6 %Neut 61.0 % 40.0-75.0 %Lymph 25.9 % 17.0-45.0 %[place] 10.3 % 1.0-11.0 %Eos 1.9 % 0.0-6.0 %Baso 0.9 % 0.0-2.0 #Neut 4.3 10^3/M3 1.5-8.0 #Lymph 1.8 10^3/M3 0.8-3.2 #[place] 0.7 10^3/M3 0.0-0.8 #Eos 0.1 10^3/m3 0.0-0.4 #Baso 0.1 10^3/m3 0.0-0.2 Laboratory test finding 03/13/2024 [facility]. [address] [place], [place] [address] [phone] TSH 3.44 uIU/mL 0.50-6.00 FRT4 1.16 [...] TOXIC. Procedures Date Code Description Status 08/15/2024 64891 Venipuncture Routine Complet ed 05/15/2024 3288F Fall [...] 03/27/2024 3044F PVRP HGB-A1c <7.0% Completed 03/13/2024 70785 Venipuncture Routine Complet ed 11/28/2023 49694489 Mammogram Completed 12/20/2022 [id number] Colonoscopy Completed 11/27/2019 [id number] Bone Mineral Density Test Co mpleted Medical [...] 2 diabetes mellitus without complications Lab - [place] 03/13/2024 E03.9 Hypothyroidism, unspecified Julissa Orr MD, PhD 03/13/2024 E03.9 Hypothyroidism, unspecified Lab - [place] 03/13/2024 I10 Essential (primary) hyperten andres Julissa Orr MD, PhD 03/13/2024 I10 Essential (primary) hyperten andres Lab - [place] 03/13/2024 E55.9 Vitamin D deficiency, unspec ified Julissa Orr MD, PhD 03/13/2024 E55.9 Vitamin D deficiency, unspec ified Lab - [place] Plan of Treatment Future Appointment(s):* 09/18/2024 9:45 am - [facility] - [place] [facility] [place] * 09/26/2024 10:30 am - Julissa Orr MD, PhD at [place] 08/15/2024 - Julissa Orr MD, PhD* Z01.818 Encounter for other preprocedural examination* New Labs:* BMP, Scheduled: 08/15/24 Functional Status Description No Information Available Mental Status Description No Information Available Referrals Refer to Dr Reason for Referral Status Appt Michel e Andre Lopez MD Scheduled [facility] [address] [place] [address] [phone]
--- OUTSIDE RECORDS SUMMARY | 2024-08-23 12:12 | External Medical Summary ---
Author Name Unknown Address Unknown Organization [facility] [address] [place] [address] Laboratory Report Ordering Provider Test Date Status LEOBARDO KENNEDY 08/15/2024 10:26 Final Observation Date Value Abnormality Reference (Units ) Status Glucose 08/15/2024 15:58 98 70-110 (MG/DL ) Final BUN 08/15/2024 15:58 20 6-25 (MG/DL) Final Creatinine 08/15/2024 15:58 0.8 0.5-1.2 (MG/ DL) Final Sodium 08/15/2024 15:58 135 135-145 (MEQ/ L) Final Potassium 08/15/2024 15:58 3.7 3.5-5.0 (MEQ/ L) Final Cl 08/15/2024 15:58 98 95-107 (MEQ/L ) Final CO2 08/15/2024 15:58 26 24-31 (MEQ/L) Final Calcium 08/15/2024 15:58 10.3 8.5-10.6 (MG/ DL) Final GFR (estimated) 08/15/2024 15:58 75 >60 (ML /MIN/1.73 SQM) Final Performing Location [facility] [address] [place] [id number]
--- OUTSIDE RECORDS SUMMARY | 2024-08-23 12:12 | External Medical Summary | Summary of Care ---
Author Name Unknown Organization [facility] Address [address] [place] [address] Phone [phone] Care Team Providers Care Insole Rounder Name Role Phone Julissa Orr MD Primary Care Provider + Encounter Details Date Type Department Care Team (Late st Contact Info) Description 08/15/2024 Orders Only Unspecified Department [facility] [address] [facility] [address] Allergies Active Allergy Reactions Criticality Noted Date Comments Antihistamines, Diphenhydramine-Type 07/06/2018 "can not take anything with any antihistamine in it' Amoxicillin-Pot Clavulanate Other (Please comment) 02/22/2019 "feeling of crawling things under skin" Celecoxib 02/19/2010 Liver enzyme abnormalities Diclofenac 07/26/2023 Food (See Comments) 04/24/2020 Scallops Ragweed Other (Please comment) 04/09/2021 Sinus issuses Sulfa Antibiotics Hives 04/23/2020 documented as of this encounter (statuses as of 08/16/2024) Medications Vitamin D, Ergocalciferol, 89804 units Capsule Take 1 Capsule by mouth once a week. 7 Active Eszopiclone 2 MG Tablet Take 1 Tablet by mouth at bedtime. 7 Active Calcium Carbonate 600 MG Oral Tablet Take 2 Tablets by mouth in the morning. Active escitalopram (LEXAPRO) 10 MG Tablet Take 1 Tablet by mouth in the morning. Active chlorthalidone (HYGROTON) 25 MG Tablet Take 1 Tablet by mouth as needed. Active escitalopram (LEXAPRO) 20 MG TabletIndication s:total of 30mg Take 1 Tablet by mouth in the morning. Active Ferrous Sulfate (IRON) 325 (65 Fe) MG TABS Take 1 Tablet by mouth every other day. Active Diclofenac Sodium 1 % Transdermal Gel Place 1 g topically on the skin as needed. Apply to knees as needed and right shoulder Active levothyroxine (LEVOXYL) 50 MCG Tablet Take 1.5 Tablets by mouth in the morning. 9 Active metoprolol tartrate (LOPRESSOR) 25 MG Tablet Take 1 Tablet by mouth in the morning. 0 Active lisinopril (PRINIVIL) 5 MG Tablet 0 Active Rosuvastatin Calcium 5 MG Oral Tablet Take 1 Tablet by mouth in the morning. Active Metamucil 28.3 % Oral Powder (Psyllium) Take by mouth. Acti ve B-12 1000 MCG Oral Capsule Take 1 Capsule by mouth in the morning. Active Polyethylene Glycol 3350 17 GM/SCOOP Oral Powder (Miralax) Take 17 g by mouth as needed. Active metroNIDAZOLE 1 % External Gel Apply topically to affected area daily. Apply to as needed under abd Active Gabapentin 100 MG Oral Capsule (Neurontin)Indic ations:Lumbar radicular pain,Chronic bilateral low back pain with right-sided sciatica,Lumbar post-laminectomy syndrome Take 2 Capsules by mouth in the morning and 2 Capsules at noon and 2 Capsules before bedtime. 180 Capsule 3 4 Active Baclofen 10 MG Oral Tablet (Lioresal)Indica tions:Lumbar radicular pain,Chronic bilateral low back pain with right-sided sciatica,Lumbar post-laminectomy syndrome Take 1 Tablet by mouth 3 times a day as needed for Muscle spasms. 90 Tablet 2 4 Active rOPINIRole HCl 2 MG Oral Tablet (Requip) Take 1 Tablet by mouth at bedtime. 4 Active Vitamin D3 25 MCG (1000 UT) Oral Capsule Take 1 Capsule by mouth in the morning. Active Esomeprazole Magnesium 20 MG Oral Capsule Delayed Release Take 1 Capsule by mouth daily before breakfast. Active Meloxicam 15 MG Oral Tablet (Mobic) Take 1 Tablet by mouth in the morning. 4 Active Tamsulosin HCl 0.4 MG Oral Capsule (Flomax) Take 1 Capsule by mouth in the morning. 90 Capsule 3 5 Active Hospital, Clinic, or Other Facility Administered Medication Ordered Dose Route Frequency Start Date End Date Status Aflibercept (Eylea) intraviteal prefilled syringe 2 mgIndications:Branch retinal vein occlusion with macular edema of right eye 2 mg IZ PRN 07/04/2024 6 Active ROPivacaine (Naropin) inj 1.5 mgIndications:Branch retinal vein occlusion with macular edema of right eye 1.5 mg IJ PRN 07/04/2024 6 Active documented as of this encounter (statuses as of 08/16/2024) Active Problems Problem Noted Date Diagnosed Date Slow urinary stream 03/23/2024 Urge incontinence 03/23/2024 Constipation 03/23/2024 QT prolongation 04/23/2020 Unstable angina 10/25/2017 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 documented as of this encounter (statuses as of 08/16/2024) Resolved Problems Problem Noted Date Diagnosed Date Resolved Date Colitis, acute 04/23/2020 04/26/2020 NONA (acute kidney injury) 04/23/2020 Volume depletion 04/23/2020 04/26/2020 Bloody diarrhea 04/23/2020 04/26/2020 Nausea, vomiting and diarrhea 04/23/2020 04/26/2020 documented as of this encounter (statuses as of 08/16/2024) Immunizations Name Administration Dates Next Due Seasonal Influenza, Trivalen t, Adjuvanted, 65+ YRS, PF, (Fluad) 03/06/2019 documented as of this encounter Social History Tobacco Use Types Packs/Day Years Used Date Smoking Tobacco: Never Smokeless Tobacco: Never Alcohol Use Standard Drinks/Week Comments Yes 0 (1 standard drink = 0.6 oz pur e alcohol) very rarely Comments No Sex and Gender Information Value Date Recorded Sex Assigned at Not on file Legal Sex Female 5:50 AM EST Gender Identity Not on file Sexual Orientation Not on file 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 Answer Date of Assessment Author No 04/23/2020 10:08 PM EDT Vanessa Nuñez RN * Are you blind or do you have serious difficulty seeing, even when wearing glasses? Answer Date of Assessment Author No 04/23/2020 10:08 PM EDT Vanessa Nuñez RN * Do you have serious difficulty walking or climbing stairs? (5 years old or older) Answer Date of Assessment Author No 04/23/2020 10:08 PM EDT Vanessa Nuñez RN * Do you have difficulty dressing or bathing? (5 years old or older) Answer Date of Assessment Author No 04/23/2020 10:08 PM EDT Vanessa Nuñez RN * Because of a physical, mental, or emotional condition, do you have difficulty doing errands alone such as visiting a doctors office or shopping? (15 years old or older) Answer Date of Assessment Author No 04/23/2020 10:08 PM EDT Vanessa Nuñez RN documented as of this encounter Mental Status * Because of a physical, mental, or emotional condition, do you have serious difficulty concentrating, remembering, or making decisions? (5 years old or older) Answer Entry Date Author No 04/23/2020 10:08 PM EDT Vanessa Nuñez RN documented in this encounter Plan of Treatment Upcoming Encounters Date Type Department Care Team (Late st Contact Info) Description 09/13/2024 2:15 PM EDT Office Visit Ophthalmology, [facility] [address] [address] [place], DO [address] [place] [address] 01/04/2025 11:30 AM EDT Office Visit Urology Angelo Sanchez [address] [place] [address] Aaron Pinto MD [address] [address] Scheduled Procedures Name Priority Associated Diagnoses Date/Ti me COLONOSCOPY FLEXIBLE PROXIMAL DIAGNOSTIC Recall Diverticulosis Health Maintenance Due Date Last Done Comments Depression Screening 1962 Hepatitis C Screening 1969 DTap/Tdap Vaccines (1 - Tdap) 1970 Cologuard 1996 Fecal Occult Blood Test 1996 Sigmoidoscopy 1996 Zoster Vaccines (1 of 2) 2001 COVID-19 Vaccine (3 - season) 2024 09/26/2020, 08/28/2020 Mammogram 11/27/2024 11/28/2023, 08/2023, 10/22/2022, Additional history exists TSH 03/13/2025 03/13/2024, 08/25, 2023, Additional history exists DXA Scan 11/26/2026 11/27/2019, 07/2019, 12/11/2015, Additional history exists Colonoscopy 12/21/2027 12/20/2022, 11/26, 12/08/2020, Additional history exists Colorectal Cancer Screening 12/21/2027 Pneumococcal Vaccine: 50+ Years Completed 07/06/2019, 05/09/2018 RETIRED - COLONOSCOPY-EVERY 5 YRS AGES 18-100 Discontinued 12/20/2022, 12/20/2022, 12/08/2020, Additional history exists Influenza Vaccine (FLU shot) Completed 03/27/2024, 05/10/2023, 04/13/2022, Additional history exists HPV (Gardasil) Vaccine Aged Out No lo nger eligible based on patient's age to complete this topic Hepatitis B Vaccine Aged Out No longe r eligible based on patient's age to complete this topic MENINGOCOCCAL (MENACTRA/MENVEO) Aged Out No longer eligible based on patient's age to complete this topic Meningitis B Vaccine (Bexsero/Trumemba) Aged Out No longer eligible based on patient's age to complete this topic documented as of this encounter Medical Devices Not on filedocumented as of this encounter Procedures Procedure Name Priority Date/Time Associated Diagnosis Comments BASIC METABOLIC PANEL Routine 08/15/2024 10:26 AM EST documented in this encounter Results * BASIC METABOLIC PANEL (08/15/2024 10:26 AM EST) GLUCOSE 98 70 - 110 MG/DL 08/15/2024 3:58 PM EST [facility] Comment:Document delivery by Jerry on behalf of [facility] BUN 20 6 - 25 MG/DL 08/15/2024 3:58 PM EST [facility] Comment:Document delivery by Jerry on behalf of [facility] CREATININE 0.8 0.5 - 1.2 MG/DL 08/15/2024 3:58 PM EST [facility] Comment:Document delivery by Jerry on behalf of [facility] SODIUM 135 135 - 145 MEQ/L 08/15/2024 3:58 PM EST [facility] Comment:Document delivery by Jerry on behalf of [facility] POTASSIUM 3.7 3.5 - 5.0 MEQ/L 08/15/2024 3:58 PM EST [facility] Comment:Document delivery by Jerry on behalf of [facility] CHLORIDE 98 95 - 107 MEQ/L 08/15/2024 3:58 PM EST [facility] Comment:Document delivery by Jerry on behalf of [facility] CO2 26 24 - 31 MEQ/L 08/15/2024 3:58 PM EST [facility] Comment:Document delivery by Jerry on behalf of [facility] CALCIUM 10.3 8.5 - 10.6 MG/DL 08/15/2024 3:58 PM EST [facility] Comment:Document delivery by Jerry on behalf of [facility] EGFR 75 >60 ML/MIN/1.7 3 SQM 08/15/2024 3:58 PM EST [facility] Comment:Document delivery by Jerry on behalf of [facility] 08/15/2024 10:2 6 AM EST us Julissa Orr MD LAB BLOOD ORDERABLES Fin al Result [facility] [address] [place] [address] documented in this encounter Advance Directives * Full Code (Latest Code Status on File) Date Activated Date Inactivated Comments 04/23/2020 9:51 PM 04/26/2020 4:55 PM This order reflects the patients wishes and were consensually agreed upon. Question Answer Comments Discussion of Advance Directives occurred with: Not Discussed * Full Code Date Activated Date Inactivated Comments 10/24/2017 7:23 PM 10/25/2017 10:12 PM This order r eflects the patients wishes and were consensually agreed upon. * Full Code Date Activated Date Inactivated Comments 10/24/2017 4:48 PM 10/24/2017 7:23 PM This order r eflects the patients wishes and were consensually agreed upon. Question Answer Comments Discussion of Advance Directives occurred with: Patient Care Teams Insole Rounder Relationship Specialty Start Date End Date Julissa Orr MD [address] [facility] [address] [place] [address] PCP - General Family Medicine 03/08/17 documented as of this encounter
[2024-08-23] MEDS ORDERED: fentaNYL citrate PF 100 MCG/2 ML VIAL ONE (12:59)
[2024-08-23] MEDS ORDERED: fentaNYL citrate PF 100 MCG/2 ML VIAL IV PRN (13:12)
[2024-08-23] MEDS ORDERED: ONDANSETRON INJ 2 MG/ML 2 ML VIAL IV PRN ×2 (13:12→17:21)
[2024-08-23] MEDS ORDERED: ePHEDrine sulfate 50 MG/ML AMP IV PRN (13:12)
[2024-08-23] MEDS ORDERED: ATROPINE SULFATE 0.1 MG/ML 10ML SYR IV PRN (13:12)
[2024-08-23] MEDS: ceFAZolin 2000MG 2,000 MG/15 ML SYR IV SCH ×2 (13:34→20:48)
[2024-08-23] MEDS ORDERED: ePHEDrine sulfate 50 MG/ML AMP ONE (13:50)
[2024-08-23] MEDS: ROPIV 0.5% 246mg, Ketorolac 30mg, EPINEPHrine 0.5mg in NSS INFIL SCH (14:11)
[2024-08-23] MEDS: ORTHO JOINT ANESTHETIC ONE (14:11)
[2024-08-23] MEDS: TRANEXAMIC ACID 1,000 MG **IV Intra-op IV SCH (15:01)
--- NOTE | 2024-08-23 15:37 | Operative Report ---
PG Post Operative Report Pre & Post Diagnosis Operation Date: 08/23/24 12:30 Pre-Op Diagnosis: Right Knee Osteoarthritis Post-Op Diagnosis: Right Knee Osteoarthritis I identified the patient and participated in the time-out.: Yes Procedure Operation Date: 08/23/24 12:30 Actual Procedures p Right Total Knee Arthroplasty, Cemented(Right) - Andre Lopez MD Surgeon Andre Lopez MD Customer Service Sales Associate MARYBETH Woodward Estimated Blood Loss 50 Findings Consistent with Post-Op Diagnosis Operative findings were advanced right knee tricompartment DJD. She had extensive grade 4 [id number] disease in all 3 compartments along with osteophytes and diffuse osteopenia. She had fairly stiff knee preoperatively with about a 10 degree flexion contracture only back to about 110 degrees. Specimens Right knee sent for pathology. Anesthesia Type Spinal MAC Complications none Disposition Accompanied Patient To Recovery: No Indications Patient is a 74-year-old female whose had a long history of bilateral knee pain discomfort describes gotten worse over time. She been through extensive conservative treatments became less successful. The right knee was bothering more than the left. X-rays show moderate DJD. She had a very stiff knee and failed conservative care. She elects proceed with total knee arthroplasty. Of note, her intraoperative findings were much more advanced than her radiographic findings. Description of Procedure Operative implants consist of: 1 Biomet Vanguard size 65 right posterior stabilized femoral component. 2. Biomet size 67 tibial tray. 3. 10 mm posterior Byce polyethylene insert. 4. 31 x 8 all poly patella. The patient was taken the op room, identified, placed on the operating table in the supine position. All contact areas were appropriately padded. IV antibiotics tried by anesthesia team. A spinal anesthetic and adductor canal block had been provided in the holding area. A Vargas catheter was placed in sterile fashion. Right side turn was then placed per the right lower extremity was then prepped and draped in usual sterile fashion. The right leg was elevated and exsanguinated with use of an Esmarch and a turn was placed at 300 mmHg. An anterior approach of the right knee was then performed through a longitudinal incision centered over the patella. Sharp dissection was got through subcutaneous tissue down the extensor mechanism. A medial parapatellar arthrotomy incision was made. Some subperiosteal dissection was carried out medially. The fat pad was resected from his patella tendon. The lateral patellofemoral ligament was released. Patella subluxate laterally and the knee was flexed. The osteophytes taken off distal femur. The ACL and PCL were then released from distal femur the tibia subluxated anteriorly. The external tumor alignment jig was then placed in the anterior face the tibia and adjusted 14 mm medially. The proximal tibial cut was made remove about 2 to 3 mm of bone from the medial side. The tibia sized to a size 67. Attention drawn the femur. The distal femur termed a sharp drill. Intramedullary canal was suction. A right 5 degree valgus cutting guide was placed. Distal femoral cutting block was pinned in place. Distal femoral cut was made take an additional 3 mm of bone off distal femur. The femur was then sized to a size 65. The AP cutting block was pinned parallel to the epicondylar axis which was 3 degrees of external rotation. The anterior cut, anterior chamfer, posterior cut, posterior chamfer cuts were made. The box cutting guide was placed and just slight lateral box cut was made. The knee was flexed. The remnants of the medial lateral menisci were excised. The osteophytes taken off the posterior aspect of femur. Trial femoral component was placed. Tibial tray was pinned in Fabiana extra rotation and the drill and stem punch use great defect in the proximal tibia for the tibial tray. The knee was then trialed and 10 mm insert fit most appropriately. Attention drawn the patella. The patella was cleaned of all soft tissue. Patella thickness measured 21 mm in thickness and was cut down to about 13. It was sized to a size 31 patella. The locals were drilled for 31 patella. The lateral osteophytes removed. Patella button was placed. Knee was taken through range of motion patella tracked nicely with no thumbs test. Attention was then drawn to place the permanent components. All trial components were removed. Bone plug was placed into the distal femur limit blood loss. Double batch Palacos G cement was mixed. A Biomet Vanguard size 65 right posterior Byce femoral component, size 67 tibial tray, a 10 mm posterior stabilized polyethylene insert, and a 31 x 8 all poly patella then cemented in place. The knee was brought out into full extension till cement hardened. Final cement check was then performed. The pericapsular tissues were injected with total 100 cc of Ortho mix. The patient did receive 1 g tranexamic acid. The tourniquet was then let down for final tourniquet time of 60 minutes. Hemostasis assured use electrocautery. Extensor Meclomen then closed with combination 1 PDS suture and 1 Vicryl suture in [id number] fashion. Extensor Meclomen checked found be intact. Subcutaneous tissue was then closed with 2 Dexon suture in a buried interrupted fashion with and the skin was closed with skin shelley. The leg was then cleaned and dried and a sterile dressing with Xeroform, 4 fours, sterile cast padding, Román bandage were applied. The patient was then transferred to the recovery room in stable condition. Patient tolerated procedure well and there were no complications. Parker Woodward, my physician medical assistant dermatology, was present for the entire procedure. His assistance was essential and required for appropriate patient positioning, prepping and draping, surgical exposure, performing the technical details of the operation, placement the implants, closure of the wound, and placement of the sterile bandage. I attest to the content of the Intraoperative Record and any orders documented therein. Any exceptions are noted below.
--- NOTE | 2024-08-23 16:09 | XRay Report ---
XR knee RT 1 or 2V routine CLINICAL HISTORY: Surgical Post Op COMPARISON: None FINDINGS: Right knee prosthesis shows no other complication. There is expected soft tissue gas. Skin shelley are present anteriorly. IMPRESSION: Unremarkable postoperative exam. ACT 112: Negative or not required by law. Electronically signed by: Chapo Pond M.D. 08/23/2024 4:08 PM
--- NOTE | 2024-08-23 16:22 | Anesthesiology Progress Note ---
Date of Service August 23, 2024 Anesthesia Post Procedure Vital Signs Vital Signs: Temp Pulse Resp BP BP Pulse Ox O2 Del Method 08/23/24 16:05 36.5 C 61 16 128/84 96 Room Air 08/23/24 15:55 61 16 116/54 L 96 Room Air 08/23/24 15:45 63 16 103/56 L 94 Oxymask 08/23/24 15:35 69 16 94/50 L 96 Oxymask 08/23/24 15:29 36.7 C 73 18 116/51 L 95 Oxymask 08/23/24 11:12 36.4 C L 62 22 134/67 92 Room Air O2 Flow Rate 08/23/24 16:05 08/23/24 15:55 08/23/24 15:45 5 08/23/24 15:35 5 08/23/24 15:29 5 08/23/24 11:12 Transfer of Care Handoff Completed per policy Notes Mental Status: alert / awake / arousable Patient Amnestic to Procedure: Yes Nausea / Vomiting: adequately controlled Pain: adequately controlled Airway Patency, RR, SpO2: stable & adequate BP & HR: stable & adequate Hydration State: stable & adequate Neuraxial Anesthesia: was administered and sensory block is resolving Anesthetic Complications: no major complications apparent
[2024-08-23] MEDS ORDERED: [UNRECOGNIZED DRUG - OTHER] TOP PRN (17:21)
[2024-08-23] MEDS ORDERED: NALOXONE HCL 0.4 MG/1 ML VIAL/CARP IV PRN (17:21)
[2024-08-23] MEDS ORDERED: MAGNESIUM HYDROXIDE SUSP 30 ML UDC PO PRN (17:21)
[2024-08-23] MEDS ORDERED: POLYETHYLENE (MIRALAX) 17 GM PACK PO PRN (17:21)
[2024-08-23] MEDS ORDERED: METOCLOPRAMIDE HCL INJ 5 MG/ML 2 ML VIAL IV PRN (17:21)
[2024-08-23] MEDS ORDERED: HYDROmorphone INJ 0.5 MG/0.5 ML SYR IV PRN (17:21)
[2024-08-23] MEDS ORDERED: bisacodyL 10 MG SUPP PR PRN (17:21)
[2024-08-23] MEDS ORDERED: ALUMINUM/MAGNESIUM SUSP 30 ML UDC PO PRN (17:21)
[2024-08-23] MEDS: KETOROLAC TROMETHAMINE 15 MG/ML VIAL IV SCH (18:17)
[2024-08-23] MEDS: ASCORBIC ACID 500 MG TAB PO SCH (18:18)
[2024-08-23] MEDS ORDERED: PSYLLIUM or GUAR GUM FIBER 4GM PACKET PO PRN (19:28)
[2024-08-23] MEDS: rOPINIRole HCL 2 MG TABLET PO SCH (20:47)
[2024-08-23] MEDS: GABAPENTIN 100 MG CAP PO SCH (20:47)
[2024-08-23] MEDS: ASPIRIN 81 MG ECTAB PO SCH (20:47)
[2024-08-23] MEDS: DOCUSATE SODIUM 100 MG CAP PO SCH (20:48)
[2024-08-23] MEDS: SENNA 8.6 MG TAB PO SCH (20:48)
[2024-08-23] MEDS: TRANEXAMIC ACID / 0.7% NACL 1,000 MG/100 ML BAG IV ONE (20:49)
[2024-08-23] MEDS ORDERED: SENNA 8.6 MG TAB PO SCH (21:00)
[2024-08-23] MEDS: ESZOPICLONE 1 MG TAB PO SCH (21:05)
[2024-08-24] MEDS: LEVOTHYROXINE SODIUM 50 MCG TABLET PO SCH (06:01)
[2024-08-24 07:21] LABS: Hematocrit (blood only) 36.4 % (37.0-47.0); Hemoglobin 13.2 g/dl (12.0-16.0); Mean Corpuscular Hemoglobin 31.5 pg (25.0-34.0); Mean Corpuscular Hgb Conc 36.3 g/dL (32.0-36.0); Mean Corpuscular Volume 86.9 fL (80.0-100.0); Mean Platelet Volume 10.3 fL (9.4-12.4); Platelet Count 118 K/uL (130-400); RDW Coefficient of Variation 13.2 % (11.5-14.5); RDW Standard Deviation 41.6 fL (36.4-46.3); Red Blood Count 4.19 M/uL (4.20-5.40); White Blood Count 7.05 K/ul (4.8-10.8)
--- NOTE | 2024-08-24 07:33 | Orthopedic Progress Note ---
Date of Service August 24, 2024 Assessment & Plan (1) Status post right knee replacement: Plan: 74-year-old female postop day 1 from right knee replacement doing quite well. Pains controlled. She is neurologically intact. Plan: 1. DVT prophylaxis including thigh-high teds, SCDs, aspirin twice a day. 2. PT/OT. Weight-bear as tolerated. A right total knee protocol. 3. Pain control. Doing well with current pain regimen. 4. Disposition. Plan is to discharge to home with some home health. Her will assist in her care at home. Admission and Anticipated Discharge Date Admission Date: August 23, 2024 Subjective 74-year-old female postop day 1 from right knee replacement. She is doing pretty well. Pain was controlled quite well overnight. No chest pain or shortness of breath. Not feeling dizzy or lightheaded. Physical Exam Physical Exam: Physical examination was a pleasant middle-age female. She is lying in bed looks pretty comfortable this morning. Examination of the right leg reveals leg to be well aligned. Her dressings clean dry and intact. She can dorsiflex and plantarflex her foot appropriately. She is neurologically intact. Respiratory: normal respiratory effort, lungs clear to auscultation Cardiovascular: RRR, no murmur, no edema Gastrointestinal (Abdomen): normal bowel sounds, soft, nontender, no hepatosplenomegaly Results & Data Vital Signs (Past 12 Hours) Vital Signs Temp Pulse Resp BP BP Pulse Ox O2 Del Method 08/24/24 03:04 36.5 C 75 18 117/66 94 Room Air 08/23/24 23:06 36.9 C 66 18 111/67 94 Room Air 08/23/24 20:02 36.5 C 61 16 101/65 96 Room Air Laboratory Results Hemoglobin is 13.2. Hematocrit is 36.4. Electrolytes are pending.
[2024-08-24 07:40] LABS: BUN Creatinine Ratio 24.1 (10-20); Calcium 8.2 mg/dl (8.6-10.3); Creatinine Clr Calc Pharmacy 69.4 ml/min; Potassium 3.4 mmol/L (3.5-5.1)
[2024-08-24] MEDS: dexAMETHasone 10 MG in SYRINGE 0 ML IV SCH (07:50)
[2024-08-24] MEDS: MULTIVITAMIN TAB PO SCH (07:51)
[2024-08-24] MEDS: METOPROLOL TARTRATE 25 MG TAB PO SCH (07:51)
[2024-08-24] MEDS: PANTOprazole 40 MG TAB PO SCH (07:51)
[2024-08-24] MEDS: ESCITALOPRAM OXALATE 20 MG TAB PO SCH (07:51)
[2024-08-24] MEDS: CHOLECALCIFEROL 25 MCG (1000 UNITS) TAB PO SCH (07:51)
[2024-08-24] MEDS: TAMSULOSIN HCL 0.4 MG CAP PO SCH (07:52)
[2024-08-24] MEDS: ROSUVASTATIN CALCIUM 5 MG TAB PO SCH (07:52)
[2024-08-24] MEDS: lisinopril 2.5 MG TAB PO SCH (07:52)
[2024-08-24] MEDS: ESCITALOPRAM OXALATE 10 MG TAB PO SCH (07:52)
[2024-08-24] MEDS: FOLIC ACID 400 MCG TAB PO SCH (07:53)
[2024-08-24] MEDS: CYANOCOBALAMIN (B-12) 500 MCG TABLET PO SCH (07:53)
[2024-08-24] MEDS: CHLORTHALIDONE 25 MG TAB PO SCH (07:53)
[2024-08-24 08:29] VITALS: RESP 16; TEMP 97.5
[2024-08-24 10:13] VITALS: BP 150/75; PULSE 67; O2SAT 92
[2024-08-24] MEDS: oxyCODONE HCL IR 5 MG TAB (IMMEDIATE RELEASE) PO PRN (12:16)
--- NOTE | 2024-08-28 06:44 | Discharge Summary ---
Date of Service August 28, 2024 Admission HPI (Per Admitting) . The patient is a 74-year-old female from [facility] who presents specifically for surgical treatment of her right knee. She has about a 5 to 6- year history of gradual progressive increasing right knee pain discomfort unresponsive to conservative care. She has been followed and treated by Dr. Harp in [place] initially and then he retired and then by his partner for quite some time. The patient has been through extensive conservative treatment clued oral medicines and injections which have become less successful over time. She now presents hoping for surgical management. Admission Exam (Per Admitting) . Physical examination reveals a pleasant fairly large middle-age female. Examination of the right knee reveal patient walks with the use of a cane. Walks with a bit of a flexed knee gait. Moderate soft tissue envelope. Range of motion about 10 to 15 degrees short of full extension to 115-120 Riese flexion. No particular pain with hip motion. No instability. She is n eurologically intact. Principal Diagnosis Same as "Discharge Diagnosis" noted below under Discharge Instructions. Discharge Data Procedures Performed Operation Date: 08/23/24 12:30 Actual Procedures p Right Total Knee Arthroplasty, Cemented(Right) - Andre Lopez MD Ordered Studies 08/23/24 05:00 US - OR guided needle placemen Routine Hospital Course (1) Status post right knee replacement: This is a 74 year old patient admitted on 08/23/24 and underwent total knee arthroplasty. She tolerated the procedure well and there were no complications. Transferred to the PACU post op and later to the orthopedic floor for further care. She was given ancef for antibiotic prophylaxis. She was also given AMAYA stockings, SCDs, and aspirin for DVT prophylaxis. Hemoglobin, hematocrit, and vital signs were monitored during her hospital stay and remained stable. Did not require any blood transfusions. There were no complications during her hospital stay. By post op day #1 the patient was tolerating a regular diet, pain was reasonably controlled with oral pain medicine, and she was participating in sports physical therapist apy. On post op day #1 the patient was discharged home and set up with home health care. She was given printed discharge instructions including prescriptions for extra strength tylenol, aspirin, zofran, oxycodone, and senokot. Continue physical therapy, weight bearing as tolerated. Continue AMAYA stockings. Follow up approximately 2 weeks post op or sooner if there are problems or concerns. PG Care Time/CCT Total # of Minutes Spent Total Time Spent with Patient: : Discharge Plan Discharge Items Patient Disposition: Home - Home Health Services Reason For Visit: Osteoarthritis Knee Right Discharge Diagnosis: Right Knee Replacement Activity: Per Instructions section Weightbearing: Full weightbearing Non-emergency contact: Surgeon Call non-emergency contact if: you have any medication questions Follow-up/Referrals: Julissa Orr M.D. [Primary Care Provider] - Diet: Regular Addtl Attending Provider Instructions: ACTIVITY RECOMMENDATIONS: Diet: * You may resume previous diet. Physical Therapy: * You will go to physical therapy three times each week for four to six weeks after your surgery in order to regain your knee range of motion and to retrain your knee to work properly. * It is just as important to make sure you are getting your knee perfectly straight as it is to regain your knee bend. * Taking a pain pill an hour before therapy can help you have a more productive and comfortable therapy session. Home Exercise: * You were shown a series of exercises (heel props, heel slides, etc.) in the hospital. Do these exercises three to four times each day including the exercises you were shown in physical therapy. Walking: * Get up and walk several times each day. For the first four weeks, try not to stand or walk for more than one hour at a time. If you do stand or walk for more than one hour, you will not hurt anything, but your knee and leg will likely swell. * As you feel comfortable, you may change from the walker or crutches to a cane and then to independent walking. MEDICATIONS: New Medicine: * You will likely be taking one or more of these medications: 1. Oxycodone - A quick and shorter-acting pain medication. Take one to two tablets every six hours to lessen your pain. 2. Aspirin - Thins your blood to lessen the chance of forming a blood clot. * The most common side effects of pain medicine and iron are nausea and constipation. If nausea or constipation is too much of a problem or if you have any questions about your new medicines or doses, call [facility] at . We will try to help you manage these issues. "VERY IMPORTANT TO READ AND REVIEW" Pain: * The immediate post-operative period after knee replacement surgery is often quite painful. * You are given a prescription for pain medicine. You should take it, as directed, when you need it, especially before physical therapy and before going to bed. Pain that interferes with sleep is very common and can last several months. * You will likely need pain medicine for the first four to six weeks. It will not stop all of the pain. The pain will lessen and as you feel better, you may change to milder pain medicine such as Tylenol. * The most common side effects of pain medicine are nausea and constipation, so don't take more than you need. SPECIAL CARE INSTRUCTIONS: TEDs/Elastic Stockings: * The white elastic stockings help limit swelling and prevent blood clots from forming in your legs. The more you wear them, the more they work. * Wear them for six weeks after knee replacement surgery and four weeks after partial knee replacement. Incision Site Care: * Remove dressing postoperative day 2 and then shower. Keep direct shower pressure off the incision site. * After showering, cover shelley with dry gauze and change daily or more frequently if the dressing is getting saturated with drainage. * Use the AMAYA stockings to hold dressing in place. DO NOT apply tape on the skin. * May completely stop using bandage if wound is dry and no drainage * Shelley are removed between 2 and 3 weeks post-op. If your follow-up appointment is made before 2 weeks, please have your appointment re- scheduled. It is too early to remove the shelley. Prevention of Infection: * Take antibiotics one hour before any dental cleaning, dental work, urological procedure, gastrointestinal procedure or any invasive surgery in order to prevent your new joint from getting infected. * You may get the antibiotics from the doctor performing the procedure or you may call our office at [phone] before and we will call in a prescription to the pharmacy of your choice. Things to Watch For: * Drainage from the incision site that occurs more than one week after your surgery. * Severely increased knee/leg pain or swelling. * Increased redness at the incision site. * Fever above 102 degrees Fahrenheit. * Unusual chest pain or shortness of breath. * Unusual pain or burning with urination. Call [facility] at [phone] with any of the above problems or if you have any questions about your medicines or recovery. FOLLOW UP VISIT: Make an appointment to see your doctor for approximately two weeks after surgery for a progress check and staple removal by calling the office at [phone]. Pending Studies at Discharge: No Stand-Alone Forms: My [facility], Pain - Opioid Pain Management, Smoking Cessation Medications and DC Order Prescriptions: Continued oxycodone 5 mg tablet 5 - 10 mg PO Q6 PRN (Reason: pain) Qty: 40 0RF Rx Instructions: Take as needed for pain ondansetron 4 mg tablet,disintegrating 4 mg PO Q8 PRN (Reason: nausea) Qty: 20 1RF Rx Instructions: Take as needed for nausea sennosides [Senokot] 8.6 mg tablet 8.6 mg PO BID 14 Days Qty: 28 0RF Rx Instructions: Take two times a day to prevent/treat constipation acetaminophen [Tylenol Extra Strength] 500 mg tablet 1,000 mg PO TID 30 Days Qty: 180 0RF Rx Instructions: Take 3 times per day to lessen pain. aspirin [Marbin Low Dose Aspirin] 81 mg tablet,delayed release (DR/EC) 81 mg PO BID 45 Days Qty: 90 0RF Rx Instructions: Take to prevent blood clots. chlorthalidone 25 mg Tablet 25 mg PO QAM aspirin [Aspir-81] 81 mg Tablet,Delayed Release (Dr/Ec) 81 mg PO QAM levothyroxine 50 mcg Tablet 50 mcg PO QAM esomeprazole magnesium [Nexium] 20 mg Capsule,Delayed Release(Dr/Ec) 40 mg PO QAM escitalopram oxalate [Lexapro] 20 mg Tablet 20 mg PO QAM Rx Instructions: Take with 10mg for total of 30mg metoprolol tartrate 25 mg Tablet 25 mg PO QAM eszopiclone [Lunesta] 2 mg Tablet 2 mg PO HS lisinopril [Zestril] 5 mg Tablet 2.5 mg PO QAM ropinirole 2 mg tablet 2 mg PO HS cholecalciferol (vitamin D3) [Vitamin D3] 25 mcg (1,000 unit) Capsule 25 mcg PO DAILY escitalopram oxalate [Lexapro] 10 mg tablet 10 mg PO QAM Rx Instructions: Take with 20mg for total of 30mg rosuvastatin 5 mg tablet 5 mg PO QAM vitamin I69-mxett acid 500-400 mcg Tablet 1 tab PO DAILY Rx Instructions: administer with a meal camphor-menthol 0.2-3.5 % Gel 1 applic TOPICAL BID PRN (Reason: Pain) Rx Instructions: rub in gently and completely Surpass For Horses 1 applic topical BID PRN (Reason: Pain) tamsulosin 0.4 mg capsule 0.4 mg PO QAM gabapentin 100 mg capsule 200 mg PO HS psyllium Packet 1 packet PO DAILY PRN (Reason: Constipation) Rx Instructions: mix into at least 8 oz of water or juice before administering polyethylene glycol 3350 [Miralax] 17 gram/dose Powder 17 g PO DAILY PRN (Reason: Constipation) Discontinued meloxicam 15 mg Tablet 15 mg PO DAILY PRN (Reason: Pain) Chris/Other Patient Handouts: DVT Post Op Prevention, Total Knee Replacement, Knee Replacement Total Dc Admission Data Admit Date/Time: 08/23/24 17:12 Attending Provider: Andre Lopez Admit Provider: Andre Lopez Primary Care Provider: Julissa Orr Other Providers: [facility],Home Health Other Interventions: Discharge Summary Assessment (RN) Last Done: 08/24/24 11:31
== END 2024-08-24 13:30 | disposition home health service (06) ==
LOC: ASU 10:00 → 3E 10:00
DX: Z68.41 Body mass index [BMI] 40.0-44.9, adult; Z79.890 Hormone replacement therapy; I10 Essential (primary) hypertension; M17.11 Unilateral primary osteoarthritis, right knee; K21.9 Gastro-esophageal reflux disease without esophagitis; E66.01 Morbid (severe) obesity due to excess calories; Z88.2 Allergy status to sulfonamides; D64.9 Anemia, unspecified; M25.761 Osteophyte, right knee; R73.03 Prediabetes; Z91.040 Latex allergy status; Z79.899 Other long term (current) drug therapy; R06.09 Other forms of dyspnea; E03.9 Hypothyroidism, unspecified; M65.961 Unspecified synovitis and tenosynovitis, right lower leg; Z88.8 Allergy status to other drugs, medicaments and biological substances; Z88.0 Allergy status to penicillin; Z79.82 Long term (current) use of aspirin